=== PATIENT | male | born 1960 | race Caucasian/White ===

== ENCOUNTER 2017-06-26 15:24 | Inpatient (IN) | payer MEDICARE ==
[~2017-06-26] VITALS: Ht 185.4 cm; Wt 62.1 kg
[~2017-06-26 15:24] MED LIST: ALPR.5 PO; ALPR1; ALPR1 PO; Cleocin HCl300 MG PO; DIVA500EC PO; DIVA500ER PO; Depakene250 MG PO; LAMO100 PO; LITH300C PO; MOXIOPS OP; MULVITMIND PO; OLAN10 PO; ONDA4ODT MM; PHENY30ER; QUET100 PO; QUET300; QUET300 PO; RISP1 PO; TRAZ100 PO; TRAZ50 PO; VARE1 PO; Vibramycin100 MG PO
[2017-06-26 15:40] LABS: Calcium, Ionized (POC) 1.11 mmol/L (1.10-1.46); Chloride (POC) 102 mmol/L (98-108); Glucose (ISTAT POC) 109 mg/dL (70-99); Hemoglobin (POC) 12.6 g/dL (13.5-17.5); Potassium (POC) 3.6 mmol/L (3.5-5.5); Sodium (POC) 142 mmol/L (135-148); Total CO2 (POC) 28 mmol/L (21-32)
[2017-06-26 15:50] LABS: pH Blood Arterial 7.37 (7.35-7.45)
[2017-06-26 15:51] LABS: PCO2 Arterial 50.3 mmHg (35-45); PO2 Arterial 55.1 mmHg (80-100)
[2017-06-26] MEDS ORDERED: LITH300ER (16:00)
[2017-06-26] MEDS ORDERED: BUSP10 (16:00)
[2017-06-26 16:01] LABS: BASOPHILS ABSOLUTE AUTO 0.01 K/mm3 (0.00-0.23); BASOPHILS PERCENT AUTO 0 % (0-2); EOSINOPHILS PERCENT AUTO 0 % (0-6); Hematocrit 35.3 % (37.0-53.0); IMMATURE GRAN ABSOLUTE AUTO 0.02 K/mm3 (0.00-0.10); IMMATURE GRAN PERCENT AUTO 0 % (0-1); LYMPHOCYTES ABSOLUTE AUTO 1.11 K/mm3 (0.84-5.20); LYMPHOCYTES PERCENT AUTO 16 % (21-46); MONOCYTES ABSOLUTE AUTO 0.46 K/mm3 (0.16-1.47); MONOCYTES PERCENT AUTO 7 % (4-13); Mean Corpuscular HGB 35.9 pg (26.0-34.0); Mean Corpuscular Volume 106 fL (80-100); Mean Platelet Volume 11.2 fL (9.1-12.4); NEUTROPHILS PERCENT AUTO 77 % (41-73); Platelet Count 69 K/mm3 (150-400); RDW Coefficient Variation 13.2 % (11.7-14.2); RDW Standard Deviation 51.6 fL (35.1-46.3); Red Blood Cell Count 3.34 M/mm3 (4.30-5.90)
[2017-06-26 16:19] LABS: Alanine Aminotransfer (ALT/SGP 56 U/L (12-78); Albumin/Globulin Ratio 0.6 (0.8-1.8); Alk Phos 142 U/L (50-136); Anion Gap 7 mmol/L (6-16); Aspartate Aminotrans (AST/SGOT 76 U/L (12-37); Bilirubin, Total 1.4 mg/dL (0.1-1.0); Blood Urea Nitrogen 8 mg/dL (8-24); Bun/Creatinine Ratio 9.5 (12.0-20.0); CO2, Blood 28 mmol/L (21-32); Calcium, Blood 8.1 mg/dL (8.5-10.1); Chloride, Blood 105 mmol/L (98-108); Creatinine, Blood 0.84 mg/dL (0.60-1.20); Ethanol (Alcohol), Blood, Med <3 mg/dL; Globulin, Blood 4.9 g/dL (2.2-4.0); Glomerular Filtration Rate >60 (60-); Glucose, Blood 108 mg/dL (70-99); Potassium, Blood 3.6 mmol/L (3.5-5.5); Sodium, Blood 140 mmol/L (136-145); Total Protein, Blood 7.9 g/dL (6.4-8.2); Troponin I <0.015 ng/mL (0.000-0.040)
[2017-06-26 16:26] LABS: CPK Creatine Kinase 362 U/L (39-308)
[2017-06-26 16:28] LABS: Valproic Acid 69.9 ug/mL (50.0-100.0)
[2017-06-26 16:46] LABS: Creatine Kinase MB 5.1 ng/mL (0.0-3.6); Creatine Kinase MB Index 1.4 (0.0-4.0)
[2017-06-26 17:32] LABS: Source, Urine Catheter
[2017-06-26 17:41] LABS: Appearance, Urine Turbid (Clear); Blood, Urine Neg (Neg); Color, Urine Red (P-Yellow); Glucose Qualitative, Urine Neg (Neg); Ketones, Urine 2+ (Neg); Leukocyte Esterase, Urine 1+ (Neg); Nitrite, Urine Pos (Neg); Protein, Urine 2+ (Neg); Urobilinogen, Urine 3+ (Normal)
[2017-06-26 17:51] LABS: Amorphous Heavy (0-Heavy); Bacteria Not Seen /hpf; Red Blood Cells, Urine Not Seen /hpf (0-2); Squamous Epithelial Cells Not Seen /hpf (Few); White Blood Cells, Urine Not Seen /hpf (0-5)
[2017-06-26 17:55] LABS: U Amphetamine Screen DETECTED; U Barbituate Screen Not Detected; U Benzodiazapine Screen Not Detected; U Buprenorphine Screen Not Detected; U Cannabinoids Screen Not Detected; U Cocaine Screen Not Detected; U Methadone Screen Not Detected; U Methamphetamine Screen DETECTED; U Opiates Screen Not Detected; U Oxycodone Screen Not Detected; U Phencyclidine Screen Not Detected; U Propoxyphene Screen Not Detected
[2017-06-27 04:04] LABS: BASOPHILS ABSOLUTE AUTO 0.01 K/mm3 (0.00-0.23); BASOPHILS PERCENT AUTO 0 % (0-2); EOSINOPHILS PERCENT AUTO 0 % (0-6); Hematocrit 34.4 % (37.0-53.0); Hemoglobin 11.6 g/dL (13.5-17.5); IMMATURE GRAN ABSOLUTE AUTO 0.03 K/mm3 (0.00-0.10); IMMATURE GRAN PERCENT AUTO 0 % (0-1); LYMPHOCYTES ABSOLUTE AUTO 2.58 K/mm3 (0.84-5.20); LYMPHOCYTES PERCENT AUTO 32 % (21-46); MONOCYTES ABSOLUTE AUTO 0.97 K/mm3 (0.16-1.47); MONOCYTES PERCENT AUTO 12 % (4-13); Mean Corpuscular HGB 35.7 pg (26.0-34.0); Mean Corpuscular HGB Conc 33.7 g/dL (31.5-36.5); Mean Corpuscular Volume 106 fL (80-100); Mean Platelet Volume 11.4 fL (9.1-12.4); NEUTROPHILS PERCENT AUTO 55 % (41-73); Platelet Count 53 K/mm3 (150-400); RDW Coefficient Variation 13.2 % (11.7-14.2); RDW Standard Deviation 51.3 fL (35.1-46.3); Red Blood Cell Count 3.25 M/mm3 (4.30-5.90); White Blood Cell Count 7.99 K/mm3 (4.00-11.30)
[2017-06-27 04:19] LABS: Albumin, Blood 2.5 g/dL (3.4-5.0); Anion Gap 6 mmol/L (6-16); Blood Urea Nitrogen 10 mg/dL (8-24); Bun/Creatinine Ratio 13.5 (12.0-20.0); CO2, Blood 27 mmol/L (21-32); Calcium, Blood 7.7 mg/dL (8.5-10.1); Chloride, Blood 109 mmol/L (98-108); Creatinine, Blood 0.74 mg/dL (0.60-1.20); Glomerular Filtration Rate >60 (60-); Glucose, Blood 109 mg/dL (70-99); Phosphorus, Blood 2.4 mg/dL (2.5-4.9); Potassium, Blood 3.4 mmol/L (3.5-5.5); Sodium, Blood 142 mmol/L (136-145)
[2017-06-28 04:54] LABS: BASOPHILS ABSOLUTE AUTO 0.02 K/mm3 (0.00-0.23); BASOPHILS PERCENT AUTO 0 % (0-2); EOSINOPHILS ABSOLUTE AUTO 0.04 K/mm3 (0.00-0.68); EOSINOPHILS PERCENT AUTO 1 % (0-6); Hematocrit 33.5 % (37.0-53.0); Hemoglobin 11.4 g/dL (13.5-17.5); IMMATURE GRAN ABSOLUTE AUTO 0.02 K/mm3 (0.00-0.10); IMMATURE GRAN PERCENT AUTO 0 % (0-1); LYMPHOCYTES ABSOLUTE AUTO 2.45 K/mm3 (0.84-5.20); LYMPHOCYTES PERCENT AUTO 35 % (21-46); MONOCYTES ABSOLUTE AUTO 0.65 K/mm3 (0.16-1.47); MONOCYTES PERCENT AUTO 9 % (4-13); Mean Corpuscular HGB 35.4 pg (26.0-34.0); Mean Corpuscular Volume 104 fL (80-100); Mean Platelet Volume 11.9 fL (9.1-12.4); NEUTROPHILS ABSOLUTE AUTO 3.77 K/mm3 (1.96-9.15); NEUTROPHILS PERCENT AUTO 54 % (41-73); Platelet Count 54 K/mm3 (150-400); RDW Coefficient Variation 12.8 % (11.7-14.2); Red Blood Cell Count 3.22 M/mm3 (4.30-5.90); White Blood Cell Count 6.95 K/mm3 (4.00-11.30)
[2017-06-28 05:18] LABS: Albumin, Blood 2.2 g/dL (3.4-5.0); Anion Gap 7 mmol/L (6-16); Blood Urea Nitrogen 9 mg/dL (8-24); CO2, Blood 25 mmol/L (21-32); Calcium, Blood 7.9 mg/dL (8.5-10.1); Chloride, Blood 110 mmol/L (98-108); Creatinine, Blood 0.64 mg/dL (0.60-1.20); Glomerular Filtration Rate >60 (60-); Glucose, Blood 82 mg/dL (70-99); Phosphorus, Blood 2.1 mg/dL (2.5-4.9); Potassium, Blood 3.3 mmol/L (3.5-5.5); Sodium, Blood 142 mmol/L (136-145)
[2017-06-28 05:21] LABS: Percent Saturation 47.7 % (20.0-50.0)
[2017-06-29 03:50] LABS: BASOPHILS ABSOLUTE AUTO 0.02 K/mm3 (0.00-0.23); BASOPHILS PERCENT AUTO 0 % (0-2); EOSINOPHILS ABSOLUTE AUTO 0.06 K/mm3 (0.00-0.68); EOSINOPHILS PERCENT AUTO 1 % (0-6); Hematocrit 35.2 % (37.0-53.0); Hemoglobin 12.2 g/dL (13.5-17.5); IMMATURE GRAN ABSOLUTE AUTO 0.01 K/mm3 (0.00-0.10); IMMATURE GRAN PERCENT AUTO 0 % (0-1); LYMPHOCYTES ABSOLUTE AUTO 2.08 K/mm3 (0.84-5.20); LYMPHOCYTES PERCENT AUTO 44 % (21-46); MONOCYTES ABSOLUTE AUTO 0.58 K/mm3 (0.16-1.47); MONOCYTES PERCENT AUTO 12 % (4-13); Mean Corpuscular HGB 35.6 pg (26.0-34.0); Mean Corpuscular HGB Conc 34.7 g/dL (31.5-36.5); Mean Corpuscular Volume 103 fL (80-100); Mean Platelet Volume 12.1 fL (9.1-12.4); NEUTROPHILS ABSOLUTE AUTO 1.99 K/mm3 (1.96-9.15); NEUTROPHILS PERCENT AUTO 42 % (41-73); Platelet Count 61 K/mm3 (150-400); RDW Coefficient Variation 12.8 % (11.7-14.2); RDW Standard Deviation 48.3 fL (35.1-46.3); Red Blood Cell Count 3.43 M/mm3 (4.30-5.90); White Blood Cell Count 4.74 K/mm3 (4.00-11.30)
[2017-06-29 04:02] LABS: Albumin, Blood 2.1 g/dL (3.4-5.0); Anion Gap 6 mmol/L (6-16); Blood Urea Nitrogen 6 mg/dL (8-24); Bun/Creatinine Ratio 8.5 (12.0-20.0); CO2, Blood 29 mmol/L (21-32); Calcium, Blood 7.8 mg/dL (8.5-10.1); Chloride, Blood 108 mmol/L (98-108); Glomerular Filtration Rate >60 (60-); Glucose, Blood 84 mg/dL (70-99); Phosphorus, Blood 2.9 mg/dL (2.5-4.9); Potassium, Blood 3.7 mmol/L (3.5-5.5); Sodium, Blood 143 mmol/L (136-145)
[2017-06-30 05:47] LABS: BASOPHILS ABSOLUTE AUTO 0.01 K/mm3 (0.00-0.23); BASOPHILS PERCENT AUTO 0 % (0-2); EOSINOPHILS ABSOLUTE AUTO 0.04 K/mm3 (0.00-0.68); EOSINOPHILS PERCENT AUTO 1 % (0-6); Hematocrit 34.6 % (37.0-53.0); IMMATURE GRAN ABSOLUTE AUTO 0.02 K/mm3 (0.00-0.10); IMMATURE GRAN PERCENT AUTO 1 % (0-1); LYMPHOCYTES ABSOLUTE AUTO 2.36 K/mm3 (0.84-5.20); LYMPHOCYTES PERCENT AUTO 53 % (21-46); MONOCYTES ABSOLUTE AUTO 0.62 K/mm3 (0.16-1.47); MONOCYTES PERCENT AUTO 14 % (4-13); Mean Corpuscular HGB 35.2 pg (26.0-34.0); Mean Corpuscular HGB Conc 34.7 g/dL (31.5-36.5); Mean Corpuscular Volume 102 fL (80-100); Mean Platelet Volume 12.5 fL (9.1-12.4); NEUTROPHILS ABSOLUTE AUTO 1.38 K/mm3 (1.96-9.15); NEUTROPHILS PERCENT AUTO 31 % (41-73); Platelet Count 67 K/mm3 (150-400); RDW Coefficient Variation 12.9 % (11.7-14.2); Red Blood Cell Count 3.41 M/mm3 (4.30-5.90); White Blood Cell Count 4.43 K/mm3 (4.00-11.30)
[2017-06-30 06:02] LABS: Albumin, Blood 2.1 g/dL (3.4-5.0); Anion Gap 7 mmol/L (6-16); Blood Urea Nitrogen 7 mg/dL (8-24); CO2, Blood 28 mmol/L (21-32); Calcium, Blood 7.9 mg/dL (8.5-10.1); Chloride, Blood 107 mmol/L (98-108); Creatinine, Blood 0.64 mg/dL (0.60-1.20); Glomerular Filtration Rate >60 (60-); Glucose, Blood 97 mg/dL (70-99); Potassium, Blood 3.4 mmol/L (3.5-5.5); Sodium, Blood 142 mmol/L (136-145)
[2017-07-01] MEDS ORDERED: [UNRECOGNIZED DRUG - CODE] (19:23)
[2017-07-01] MEDS ORDERED: K-Dur20 MEQ PO (23:07)
== END 2017-06-30 15:19 | disposition home or self-care (01) | DRG 100 ==
LOC: ER 15:24 → ICUW 17:19 → ICUE 17:19 → MEDS 06-29 12:06 → ENPENDDIS 06-30 11:14 → MEDS 06-30 15:19
PROVIDERS: Emergency Medicine; Family Medicine
DX: G40.801 Other epilepsy, not intractable, with status epilepticus (principal); G92 Toxic encephalopathy; J18.9 Pneumonia, unspecified organism; R40.20 Unspecified coma; S06.9X9A Unspecified intracranial injury with loss of consciousness of unspecified duration, initial encounter; F10.230 Alcohol dependence with withdrawal, uncomplicated; M62.82 Rhabdomyolysis; N39.0 Urinary tract infection, site not specified; G81.94 Hemiplegia, unspecified affecting left nondominant side; F15.29 Other stimulant dependence with unspecified stimulant-induced disorder; B19.20 Unspecified viral hepatitis C without hepatic coma; G83.84 Todd's paralysis (postepileptic); D69.6 Thrombocytopenia, unspecified; E87.6 Hypokalemia; B18.2 Chronic viral hepatitis C; G83.24 Monoplegia of upper limb affecting left nondominant side; F31.9 Bipolar disorder, unspecified; E83.39 Other disorders of phosphorus metabolism; D64.9 Anemia, unspecified; J01.90 Acute sinusitis, unspecified; I67.9 Cerebrovascular disease, unspecified
CPT/HCPCS: 31720; 36415; 36600; 51702; 70450; 70551; 71045; 80047; 80053; 80069; 80164; 80178; 81001; 82550; 82553; 82607; 82728; 82746; 82803; 83540; 83550; 83605; 83735; 84146; 84484; 85014; 85025; 87086; 93005; 93010; 95819; 96374; 96375; 97161; 99285; C9113; G0480; G8978; G8979; J0456; J0696; J1953; J3411; J3475; J7030; J7042; J7050; J7060

== ENCOUNTER 2017-07-01 19:04 | Emergency (ER) | payer MEDICARE ==
[~2017-07-01] VITALS: Ht 185.4 cm; Wt 68.0 kg
[~2017-07-01 19:04] MED LIST changes: +BUSP10; +LITH300ER
[2017-07-01] MEDS ORDERED: [UNRECOGNIZED DRUG - CODE] (19:23)
[2017-07-01 20:18] LABS: Hematocrit 32.4 % (37.0-53.0); Hemoglobin 10.9 g/dL (13.5-17.5); Mean Corpuscular HGB 35.4 pg (26.0-34.0); Mean Corpuscular HGB Conc 33.6 g/dL (31.5-36.5); Mean Platelet Volume 11.7 fL (9.1-12.4); Platelet Count 87 K/mm3 (150-400); RDW Coefficient Variation 13.9 % (11.7-14.2); RDW Standard Deviation 53.9 fL (35.1-46.3); Red Blood Cell Count 3.08 M/mm3 (4.30-5.90); White Blood Cell Count 4.82 K/mm3 (4.00-11.30)
[2017-07-01 20:24] LABS: Mean Corpuscular Volume 105 fL (80-100)
[2017-07-01 20:34] LABS: U Amphetamine Screen Not Detected; U Barbituate Screen Not Detected; U Benzodiazapine Screen Not Detected; U Buprenorphine Screen Not Detected; U Cannabinoids Screen Not Detected; U Cocaine Screen Not Detected; U Methadone Screen Not Detected; U Methamphetamine Screen Not Detected; U Opiates Screen Not Detected; U Oxycodone Screen Not Detected; U Phencyclidine Screen Not Detected; U Propoxyphene Screen Not Detected
[2017-07-01 20:34] LABS: Alanine Aminotransfer (ALT/SGP 46 U/L (12-78); Albumin, Blood 2.4 g/dL (3.4-5.0); Albumin/Globulin Ratio 0.6 (0.8-1.8); Alk Phos 80 U/L (50-136); Anion Gap 6 mmol/L (6-16); Aspartate Aminotrans (AST/SGOT 79 U/L (12-37); Bilirubin, Total 0.5 mg/dL (0.1-1.0); Blood Urea Nitrogen 3 mg/dL (8-24); Bun/Creatinine Ratio 5.4 (12.0-20.0); CO2, Blood 28 mmol/L (21-32); Calcium, Blood 7.3 mg/dL (8.5-10.1); Chloride, Blood 111 mmol/L (98-108); Creatinine, Blood 0.55 mg/dL (0.60-1.20); Ethanol (Alcohol), Blood, Med 175 mg/dL; Globulin, Blood 3.9 g/dL (2.2-4.0); Glomerular Filtration Rate >60 (60-); Glucose, Blood 78 mg/dL (70-99); Potassium, Blood 2.9 mmol/L (3.5-5.5); Sodium, Blood 145 mmol/L (136-145); Total Protein, Blood 6.3 g/dL (6.4-8.2); Valproic Acid 40.8 ug/mL (50.0-100.0)
[2017-07-01 20:38] LABS: BAND PERCENT MAN 1 % (0-8); BASOPHILS PERCENT MAN 0 % (0-2); EOSINOPHILS PERCENT MAN 0 % (0-6); LYMPHOCYTES ABSOLUTE MAN 3.13 K/mm3 (0.84-5.20); LYMPHOCYTES PERCENT MAN 65 % (21-46); MONOCYTES ABSOLUTE MAN 0.48 K/mm3 (0.16-1.47); MONOCYTES PERCENT MAN 10 % (4-13); SEG NEUTROPHILS PERCENT MAN 24 % (41-73); TOTAL CELLS COUNTED 100
[2017-07-01 21:23] LABS: Lithium <0.20 mmol/L (0.60-1.20)
[2017-07-01] MEDS ORDERED: K-Dur20 MEQ PO (23:07)
== END 2017-07-01 23:20 | disposition home or self-care (01) ==
LOC: ER 19:04
PROVIDERS: Emergency Medicine
DX: F10.129 Alcohol abuse with intoxication, unspecified (principal); E87.6 Hypokalemia; Z88.0 Allergy status to penicillin; Z79.899 Other long term (current) drug therapy; F41.9 Anxiety disorder, unspecified; G40.909 Epilepsy, unspecified, not intractable, without status epilepticus; F31.9 Bipolar disorder, unspecified
CPT/HCPCS: 80053; 80164; 80178; 85025; G0480

== ENCOUNTER → 2017-09-05 | Outpatient (CLI) | payer MEDICARE ==
[~2017-09-05] MED LIST changes: +K-Dur20 MEQ PO; +[UNRECOGNIZED DRUG - CODE]
[2017-09-05 18:31] LABS: Valproic Acid 47.4 ug/mL (50.0-100.0)
== END | disposition home or self-care (01) ==
LOC: LAB SHORT 09:30 → LAB 09:30
PROVIDERS: Nurse Practitioner Family
DX: F31.10 Bipolar disorder, current episode manic without psychotic features, unspecified (principal); R56.9 Unspecified convulsions
CPT/HCPCS: 80164

== ENCOUNTER 2017-11-18 08:07 | Emergency (ER) | payer MEDICARE ==
[~2017-11-18] VITALS: Ht 185.4 cm; Wt 59.0 kg
[2017-11-18] MEDS ORDERED: VARE1 PO (08:22)
[2017-11-18] MEDS ORDERED: BUSP10 PO (08:22)
[2017-11-18 08:53] LABS: BASOPHILS ABSOLUTE AUTO 0.03 K/mm3 (0.00-0.23); BASOPHILS PERCENT AUTO 0 % (0-2); EOSINOPHILS ABSOLUTE AUTO 0.03 K/mm3 (0.00-0.68); EOSINOPHILS PERCENT AUTO 0 % (0-6); Hematocrit 33.6 % (37.0-53.0); Hemoglobin 11.2 g/dL (13.5-17.5); IMMATURE GRAN ABSOLUTE AUTO 0.01 K/mm3 (0.00-0.10); IMMATURE GRAN PERCENT AUTO 0 % (0-1); LYMPHOCYTES ABSOLUTE AUTO 2.37 K/mm3 (0.84-5.20); LYMPHOCYTES PERCENT AUTO 30 % (21-46); MONOCYTES PERCENT AUTO 13 % (4-13); Mean Corpuscular HGB 35.3 pg (26.0-34.0); Mean Corpuscular HGB Conc 33.3 g/dL (31.5-36.5); Mean Corpuscular Volume 106 fL (80-100); Mean Platelet Volume 9.3 fL (9.1-12.4); NEUTROPHILS ABSOLUTE AUTO 4.58 K/mm3 (1.96-9.15); NEUTROPHILS PERCENT AUTO 57 % (41-73); Platelet Count 112 K/mm3 (150-400); RDW Coefficient Variation 14.7 % (11.7-14.2); RDW Standard Deviation 58.4 fL (35.1-46.3); Red Blood Cell Count 3.17 M/mm3 (4.30-5.90); White Blood Cell Count 8.02 K/mm3 (4.00-11.30)
[2017-11-18 09:08] LABS: Alanine Aminotransfer (ALT/SGP 36 U/L (12-78); Albumin, Blood 2.7 g/dL (3.4-5.0); Albumin/Globulin Ratio 0.5 (0.8-1.8); Alk Phos 92 U/L (50-136); Anion Gap 6 mmol/L (6-16); Aspartate Aminotrans (AST/SGOT 75 U/L (12-37); Blood Urea Nitrogen 6 mg/dL (8-24); Bun/Creatinine Ratio 9.7 (12.0-20.0); CO2, Blood 27 mmol/L (21-32); Calcium, Blood 7.6 mg/dL (8.5-10.1); Chloride, Blood 108 mmol/L (98-108); Creatinine, Blood 0.62 mg/dL (0.60-1.20); Glomerular Filtration Rate >60 (60-); Glucose, Blood 85 mg/dL (70-99); Potassium, Blood 3.7 mmol/L (3.5-5.5); Sodium, Blood 141 mmol/L (136-145); Total Protein, Blood 7.7 g/dL (6.4-8.2); Valproic Acid 62.1 ug/mL (50.0-100.0)
== END 2017-11-18 10:18 | disposition home or self-care (01) ==
LOC: ER 08:07
PROVIDERS: Emergency Medicine
DX: G40.909 Epilepsy, unspecified, not intractable, without status epilepticus (principal); F10.20 Alcohol dependence, uncomplicated; F31.9 Bipolar disorder, unspecified; F17.210 Nicotine dependence, cigarettes, uncomplicated; Z88.0 Allergy status to penicillin; Z79.899 Other long term (current) drug therapy
CPT/HCPCS: 36415; 71046; 80053; 80164; 85025; 96360; 99284-25; J7030

== ENCOUNTER 2018-01-28 06:51 | Inpatient (IN) | payer MEDICARE ==
[~2018-01-28] VITALS: Ht 185.4 cm; Wt 64.5 kg
[~2018-01-28 06:51] MED LIST changes: +BUSP10 PO
[2018-01-28 08:33] LABS: BASOPHILS ABSOLUTE AUTO 0.03 K/mm3 (0.00-0.23); BASOPHILS PERCENT AUTO 1 % (0-2); EOSINOPHILS ABSOLUTE AUTO 0.03 K/mm3 (0.00-0.68); EOSINOPHILS PERCENT AUTO 1 % (0-6); Hematocrit 32.3 % (37.0-53.0); Hemoglobin 10.5 g/dL (13.5-17.5); IMMATURE GRAN ABSOLUTE AUTO 0.02 K/mm3 (0.00-0.10); IMMATURE GRAN PERCENT AUTO 0 % (0-1); LYMPHOCYTES ABSOLUTE AUTO 3.08 K/mm3 (0.84-5.20); LYMPHOCYTES PERCENT AUTO 49 % (21-46); MONOCYTES PERCENT AUTO 8 % (4-13); Mean Corpuscular HGB 35.8 pg (26.0-34.0); Mean Corpuscular HGB Conc 32.5 g/dL (31.5-36.5); Mean Corpuscular Volume 110 fL (80-100); Mean Platelet Volume 10.5 fL (9.1-12.4); NEUTROPHILS ABSOLUTE AUTO 2.64 K/mm3 (1.96-9.15); NEUTROPHILS PERCENT AUTO 42 % (41-73); RDW Coefficient Variation 15.6 % (11.7-14.2); RDW Standard Deviation 63.8 fL (35.1-46.3); Red Blood Cell Count 2.93 M/mm3 (4.30-5.90)
[2018-01-28 08:37] LABS: Platelet Count 41 K/mm3 (150-400)
[2018-01-28 08:49] LABS: Alanine Aminotransfer (ALT/SGP 63 U/L (12-78); Albumin, Blood 2.5 g/dL (3.4-5.0); Albumin/Globulin Ratio 0.5 (0.8-1.8); Alk Phos 102 U/L (50-136); Anion Gap 4 mmol/L (6-16); Aspartate Aminotrans (AST/SGOT 152 U/L (12-37); Bilirubin, Total 1.1 mg/dL (0.1-1.0); Blood Urea Nitrogen 8 mg/dL (8-24); Bun/Creatinine Ratio 12.7 (12.0-20.0); CO2, Blood 30 mmol/L (21-32); Calcium, Blood 7.5 mg/dL (8.5-10.1); Chloride, Blood 111 mmol/L (98-108); Creatinine, Blood 0.63 mg/dL (0.60-1.20); Globulin, Blood 5.1 g/dL (2.2-4.0); Glomerular Filtration Rate >60 (60-); Glucose, Blood 87 mg/dL (70-99); Sodium, Blood 145 mmol/L (136-145); Total Protein, Blood 7.6 g/dL (6.4-8.2)
[2018-01-28] MEDS ORDERED: DIVA500ER PO (12:57)
[2018-01-28 14:15] LABS: Ethanol (Alcohol), Blood, Med 161 mg/dL
[2018-01-28 14:23] LABS: Alpha Feto Protein, Tumor Mkr 6.7 ng/mL (0.0-8.0); Lithium <0.20 mmol/L (0.60-1.20)
[2018-01-28 18:05] LABS: Hematocrit 26.8 % (37.0-53.0); Hemoglobin 8.5 g/dL (13.5-17.5)
[2018-01-28 22:09] LABS: Hematocrit 22.7 % (37.0-53.0); Hemoglobin 7.3 g/dL (13.5-17.5)
[2018-01-29 04:02] LABS: BASOPHILS ABSOLUTE AUTO 0.01 K/mm3 (0.00-0.23); BASOPHILS PERCENT AUTO 0 % (0-2); EOSINOPHILS ABSOLUTE AUTO 0.04 K/mm3 (0.00-0.68); EOSINOPHILS PERCENT AUTO 1 % (0-6); Hematocrit 22.7 % (37.0-53.0); Hemoglobin 7.3 g/dL (13.5-17.5); IMMATURE GRAN ABSOLUTE AUTO 0.03 K/mm3 (0.00-0.10); IMMATURE GRAN PERCENT AUTO 1 % (0-1); LYMPHOCYTES ABSOLUTE AUTO 3.24 K/mm3 (0.84-5.20); LYMPHOCYTES PERCENT AUTO 49 % (21-46); MONOCYTES ABSOLUTE AUTO 0.83 K/mm3 (0.16-1.47); MONOCYTES PERCENT AUTO 13 % (4-13); Mean Corpuscular HGB 35.8 pg (26.0-34.0); Mean Corpuscular HGB Conc 32.2 g/dL (31.5-36.5); Mean Corpuscular Volume 111 fL (80-100); Mean Platelet Volume 11.1 fL (9.1-12.4); NEUTROPHILS ABSOLUTE AUTO 2.42 K/mm3 (1.96-9.15); NEUTROPHILS PERCENT AUTO 37 % (41-73); RDW Coefficient Variation 15.3 % (11.7-14.2); RDW Standard Deviation 63.1 fL (35.1-46.3); Red Blood Cell Count 2.04 M/mm3 (4.30-5.90); White Blood Cell Count 6.57 K/mm3 (4.00-11.30)
[2018-01-29 04:06] LABS: Platelet Count 34 K/mm3 (150-400)
[2018-01-29 04:26] LABS: Percent Saturation 77.7 % (20.0-50.0)
[2018-01-29 04:29] LABS: Alanine Aminotransfer (ALT/SGP 47 U/L (12-78); Albumin/Globulin Ratio 0.5 (0.8-1.8); Alk Phos 86 U/L (50-136); Anion Gap 5 mmol/L (6-16); Aspartate Aminotrans (AST/SGOT 111 U/L (12-37); Bilirubin, Total 1.1 mg/dL (0.1-1.0); Blood Urea Nitrogen 13 mg/dL (8-24); Bun/Creatinine Ratio 14.5 (12.0-20.0); CO2, Blood 29 mmol/L (21-32); Calcium, Blood 7.3 mg/dL (8.5-10.1); Chloride, Blood 107 mmol/L (98-108); Globulin, Blood 4.4 g/dL (2.2-4.0); Glomerular Filtration Rate >60 (60-); Glucose, Blood 87 mg/dL (70-99); Magnesium, Blood 1.9 mg/dL (1.6-2.4); Phosphorus, Blood 3.6 mg/dL (2.5-4.9); Potassium, Blood 4.4 mmol/L (3.5-5.5); Sodium, Blood 141 mmol/L (136-145); Total Protein, Blood 6.4 g/dL (6.4-8.2)
[2018-01-29 10:26] LABS: International Normalized Ratio 1.47; Prothrombin Time Results 14.8 Sec (9.7-11.5)
[2018-01-29 13:10] LABS: Automated BF RBC Count 2.042 M/mm3 (0-0); Automated BF WBC Count 2.819 K/mm3 (0-999); Body Fluid WBC Count 2819 /mm3 (0-999); RBC Count, Body Fluid 2042000 /mm3 (0-0)
[2018-01-29 13:13] LABS: Glucose, Body Fluid 51 mg/dL; Lactate Dehydrogenase, Body Fl 261 U/L; Protein, Body Fluid 5.7 g/dL
[2018-01-29 14:05] LABS: Appearance, Body Fluid Bloody (Clear); Color, Body Fluid Red (None-Yellow); Total Cell Count, Body Fluid 100
[2018-01-29 14:12] LABS: pH, Body Fluid 7.7
[2018-01-29 19:23] LABS: Hematocrit 26.5 % (37.0-53.0); Hemoglobin 8.6 g/dL (13.5-17.5)
[2018-01-30 06:31] LABS: BASOPHILS ABSOLUTE AUTO 0.02 K/mm3 (0.00-0.23); BASOPHILS PERCENT AUTO 0 % (0-2); EOSINOPHILS ABSOLUTE AUTO 0.08 K/mm3 (0.00-0.68); EOSINOPHILS PERCENT AUTO 1 % (0-6); Hematocrit 25.2 % (37.0-53.0); Hemoglobin 8.3 g/dL (13.5-17.5); IMMATURE GRAN ABSOLUTE AUTO 0.03 K/mm3 (0.00-0.10); IMMATURE GRAN PERCENT AUTO 1 % (0-1); LYMPHOCYTES ABSOLUTE AUTO 2.59 K/mm3 (0.84-5.20); LYMPHOCYTES PERCENT AUTO 47 % (21-46); MONOCYTES ABSOLUTE AUTO 0.59 K/mm3 (0.16-1.47); MONOCYTES PERCENT AUTO 11 % (4-13); Mean Corpuscular HGB 34.7 pg (26.0-34.0); Mean Corpuscular HGB Conc 32.9 g/dL (31.5-36.5); Mean Corpuscular Volume 105 fL (80-100); Mean Platelet Volume 10.7 fL (9.1-12.4); NEUTROPHILS ABSOLUTE AUTO 2.24 K/mm3 (1.96-9.15); NEUTROPHILS PERCENT AUTO 40 % (41-73); RDW Coefficient Variation 18.3 % (11.7-14.2); RDW Standard Deviation 70.5 fL (35.1-46.3); Red Blood Cell Count 2.39 M/mm3 (4.30-5.90); White Blood Cell Count 5.55 K/mm3 (4.00-11.30)
[2018-01-30 06:32] LABS: Platelet Count 37 K/mm3 (150-400)
[2018-01-31 04:33] LABS: BASOPHILS ABSOLUTE AUTO 0.01 K/mm3 (0.00-0.23); BASOPHILS PERCENT AUTO 0 % (0-2); EOSINOPHILS ABSOLUTE AUTO 0.06 K/mm3 (0.00-0.68); EOSINOPHILS PERCENT AUTO 1 % (0-6); Hematocrit 27.1 % (37.0-53.0); Hemoglobin 8.9 g/dL (13.5-17.5); IMMATURE GRAN ABSOLUTE AUTO 0.03 K/mm3 (0.00-0.10); IMMATURE GRAN PERCENT AUTO 1 % (0-1); LYMPHOCYTES ABSOLUTE AUTO 2.68 K/mm3 (0.84-5.20); LYMPHOCYTES PERCENT AUTO 45 % (21-46); MONOCYTES ABSOLUTE AUTO 0.69 K/mm3 (0.16-1.47); MONOCYTES PERCENT AUTO 12 % (4-13); Mean Corpuscular HGB 34.5 pg (26.0-34.0); Mean Corpuscular HGB Conc 32.8 g/dL (31.5-36.5); Mean Corpuscular Volume 105 fL (80-100); Mean Platelet Volume 10.6 fL (9.1-12.4); NEUTROPHILS ABSOLUTE AUTO 2.46 K/mm3 (1.96-9.15); NEUTROPHILS PERCENT AUTO 42 % (41-73); Platelet Count 126 K/mm3 (150-400); RDW Coefficient Variation 17.9 % (11.7-14.2); RDW Standard Deviation 68.6 fL (35.1-46.3); Red Blood Cell Count 2.58 M/mm3 (4.30-5.90); White Blood Cell Count 5.93 K/mm3 (4.00-11.30)
[2018-01-31 04:58] LABS: Anion Gap 5 mmol/L (6-16); Blood Urea Nitrogen 6 mg/dL (8-24); CO2, Blood 26 mmol/L (21-32); Chloride, Blood 107 mmol/L (98-108); Creatinine, Blood 0.86 mg/dL (0.60-1.20); Glomerular Filtration Rate >60 (60-); Glucose, Blood 91 mg/dL (70-99); Potassium, Blood 4.4 mmol/L (3.5-5.5); Sodium, Blood 138 mmol/L (136-145)
== END 2018-01-31 10:40 | disposition home or self-care (01) | DRG 199 ==
LOC: ER 06:51 → PCU 06:52 → MEDS 01-30 17:09 → ENPENDDIS 01-31 09:36 → MEDS 01-31 10:40
PROVIDERS: Emergency Medicine; Hospitalist; Internal Medicine
PROC: 0W9B3ZZ Drainage of Left Pleural Cavity, Percutaneous Approach (ICD-10-PCS; principal; 2018-01-28)
DX: S27.1XXA Traumatic hemothorax, initial encounter (principal); J96.01 Acute respiratory failure with hypoxia; J90 Pleural effusion, not elsewhere classified; E44.0 Moderate protein-calorie malnutrition; J98.11 Atelectasis; Z68.1 Body mass index [BMI] 19.9 or less, adult; I95.9 Hypotension, unspecified; G40.909 Epilepsy, unspecified, not intractable, without status epilepticus; F31.9 Bipolar disorder, unspecified; F17.210 Nicotine dependence, cigarettes, uncomplicated; D69.6 Thrombocytopenia, unspecified; B19.20 Unspecified viral hepatitis C without hepatic coma; D50.0 Iron deficiency anemia secondary to blood loss (chronic); F10.129 Alcohol abuse with intoxication, unspecified; W19.XXXA Unspecified fall, initial encounter
CPT/HCPCS: 32555; 36415; 36430; 71045; 71046; 71260; 76705; 80048; 80053; 80164; 80178; 82105; 82607; 82728; 82746; 82945; 83540; 83550; 83605; 83615; 83735; 83986; 84100; 84157; 85014; 85018; 85025; 85610; 85730; 86850; 86900; 86901; 86923; 87040; 87070; 87186; 87205; 89051; 90686; 92610; 94640; 94760; 96361; 96365; 97162; 97166; 97530; 97535; 99285-25; G0008; G0378; G0480; G8978; G8979; G8987; G8988; G8996; G8997; G8998; J0696; J1885; J1956; J3010; J3411; J3475; J7042; J7050; J7120; P9016; P9035; Q9967

== ENCOUNTER 2018-03-22 17:08 | Inpatient (IN) | payer MEDICARE ==
[~2018-03-22] VITALS: Ht 182.9 cm; Wt 58.0 kg
[2018-03-22 18:03] LABS: Source, Urine Clean Catch
[2018-03-22 18:05] LABS: BASOPHILS ABSOLUTE AUTO 0.01 K/mm3 (0.00-0.23); BASOPHILS PERCENT AUTO 0 % (0-2); EOSINOPHILS PERCENT AUTO 0 % (0-6); Hematocrit 28.3 % (37.0-53.0); Hemoglobin 9.5 g/dL (13.5-17.5); IMMATURE GRAN ABSOLUTE AUTO 0.02 K/mm3 (0.00-0.10); IMMATURE GRAN PERCENT AUTO 0 % (0-1); LYMPHOCYTES PERCENT AUTO 27 % (21-46); MONOCYTES PERCENT AUTO 23 % (4-13); Mean Corpuscular HGB 36.5 pg (26.0-34.0); Mean Corpuscular HGB Conc 33.6 g/dL (31.5-36.5); Mean Corpuscular Volume 109 fL (80-100); Mean Platelet Volume 10.7 fL (9.1-12.4); NEUTROPHILS ABSOLUTE AUTO 2.65 K/mm3 (1.96-9.15); NEUTROPHILS PERCENT AUTO 50 % (41-73); Platelet Count 52 K/mm3 (150-400); RDW Coefficient Variation 15.9 % (11.7-14.2); RDW Standard Deviation 63.4 fL (35.1-46.3); White Blood Cell Count 5.28 K/mm3 (4.00-11.30)
[2018-03-22 18:16] LABS: Alanine Aminotransfer (ALT/SGP 41 U/L (12-78); Albumin, Blood 2.6 g/dL (3.4-5.0); Albumin/Globulin Ratio 0.5 (0.8-1.8); Alk Phos 89 U/L (50-136); Anion Gap 10 mmol/L (6-16); Aspartate Aminotrans (AST/SGOT 86 U/L (12-37); Bilirubin, Total 3.1 mg/dL (0.1-1.0); Blood Urea Nitrogen 19 mg/dL (8-24); Bun/Creatinine Ratio 28.1 (12.0-20.0); CO2, Blood 22 mmol/L (21-32); Calcium, Blood 7.3 mg/dL (8.5-10.1); Chloride, Blood 101 mmol/L (98-108); Creatinine, Blood 0.68 mg/dL (0.60-1.20); Glomerular Filtration Rate >60 (60-); Glucose, Blood 174 mg/dL (70-99); Potassium, Blood 2.6 mmol/L (3.5-5.5); Sodium, Blood 133 mmol/L (136-145); Total Protein, Blood 7.6 g/dL (6.4-8.2)
[2018-03-22 18:34] LABS: Appearance, Urine Hazy (Clear); Blood, Urine 1+ (Neg); Color, Urine Amber (P-Yellow); Glucose Qualitative, Urine Neg (Neg); Ketones, Urine 2+ (Neg); Leukocyte Esterase, Urine 2+ (Neg); Nitrite, Urine Pos (Neg); Protein, Urine 2+ (Neg); Specific Gravity, Urine 1.015 (1.003-1.022); Urobilinogen, Urine 4+ (Normal)
[2018-03-22 18:58] LABS: Bilirubin, Urine 3+ (Neg)
[2018-03-22 19:01] LABS: Red Blood Cells, Urine Not Seen /hpf (0-2)
[2018-03-22 19:02] LABS: Bacteria Not Seen /hpf; Mucus Mod (0-Heavy); Squamous Epithelial Cells Few /hpf (Few)
[2018-03-22 19:17] LABS: Valproic Acid 34.2 ug/mL (50.0-100.0)
[2018-03-22 19:20] LABS: Ethanol (Alcohol), Blood, Med <3 mg/dL
[2018-03-22 19:24] LABS: Lithium <0.20 mmol/L (0.60-1.20)
[2018-03-22 19:28] LABS: U Benzodiazapine Screen DETECTED; U Cannabinoids Screen DETECTED
[2018-03-22 19:29] LABS: U Amphetamine Screen Not Detected; U Barbituate Screen Not Detected; U Buprenorphine Screen Not Detected; U Cocaine Screen Not Detected; U Methadone Screen Not Detected; U Methamphetamine Screen Not Detected; U Opiates Screen Not Detected; U Oxycodone Screen DETECTED; U Phencyclidine Screen Not Detected; U Propoxyphene Screen Not Detected
[2018-03-23 21:23] LABS: BASOPHILS ABSOLUTE AUTO 0.01 K/mm3 (0.00-0.23); BASOPHILS PERCENT AUTO 0 % (0-2); EOSINOPHILS ABSOLUTE AUTO 0.02 K/mm3 (0.00-0.68); EOSINOPHILS PERCENT AUTO 0 % (0-6); Hematocrit 31.5 % (37.0-53.0); Hemoglobin 10.6 g/dL (13.5-17.5); IMMATURE GRAN ABSOLUTE AUTO 0.01 K/mm3 (0.00-0.10); IMMATURE GRAN PERCENT AUTO 0 % (0-1); LYMPHOCYTES ABSOLUTE AUTO 2.36 K/mm3 (0.84-5.20); LYMPHOCYTES PERCENT AUTO 49 % (21-46); MONOCYTES ABSOLUTE AUTO 0.86 K/mm3 (0.16-1.47); MONOCYTES PERCENT AUTO 18 % (4-13); Mean Corpuscular HGB 36.2 pg (26.0-34.0); Mean Corpuscular HGB Conc 33.7 g/dL (31.5-36.5); Mean Corpuscular Volume 108 fL (80-100); Mean Platelet Volume 10.9 fL (9.1-12.4); NEUTROPHILS ABSOLUTE AUTO 1.61 K/mm3 (1.96-9.15); NEUTROPHILS PERCENT AUTO 33 % (41-73); Platelet Count 62 K/mm3 (150-400); RDW Coefficient Variation 16.5 % (11.7-14.2); RDW Standard Deviation 64.5 fL (35.1-46.3); Red Blood Cell Count 2.93 M/mm3 (4.30-5.90); White Blood Cell Count 4.87 K/mm3 (4.00-11.30)
[2018-03-23 21:53] LABS: Alanine Aminotransfer (ALT/SGP 34 U/L (12-78); Albumin, Blood 2.2 g/dL (3.4-5.0); Albumin/Globulin Ratio 0.5 (0.8-1.8); Alk Phos 81 U/L (50-136); Anion Gap 6 mmol/L (6-16); Aspartate Aminotrans (AST/SGOT 68 U/L (12-37); Bilirubin, Total 2.2 mg/dL (0.1-1.0); Blood Urea Nitrogen 6 mg/dL (8-24); Bun/Creatinine Ratio 9.4 (12.0-20.0); CO2, Blood 25 mmol/L (21-32); Calcium, Blood 7.6 mg/dL (8.5-10.1); Chloride, Blood 108 mmol/L (98-108); Creatinine, Blood 0.64 mg/dL (0.60-1.20); Globulin, Blood 4.5 g/dL (2.2-4.0); Glomerular Filtration Rate >60 (60-); Glucose, Blood 99 mg/dL (70-99); Magnesium, Blood 1.8 mg/dL (1.6-2.4); Potassium, Blood 3.3 mmol/L (3.5-5.5); Sodium, Blood 139 mmol/L (136-145); Total Protein, Blood 6.7 g/dL (6.4-8.2)
[2018-03-24 02:39] LABS: Source, Urine Clean Catch
[2018-03-24 02:44] LABS: Blood, Urine Neg (Neg); Glucose Qualitative, Urine Neg (Neg); Ketones, Urine Neg (Neg); Leukocyte Esterase, Urine 1+ (Neg); Nitrite, Urine Neg (Neg); Protein, Urine Neg (Neg); Specific Gravity, Urine 1.015 (1.003-1.022); Urobilinogen, Urine 4+ (Normal)
[2018-03-24 02:53] LABS: Appearance, Urine Clear (Clear); Color, Urine Orange (P-Yellow)
[2018-03-24 02:54] LABS: Bilirubin, Urine 2+ (Neg)
[2018-03-24 02:55] LABS: Bacteria Rare /hpf; Red Blood Cells, Urine Not Seen /hpf (0-2); Squamous Epithelial Cells Rare /hpf (Few); White Blood Cells, Urine 0-2 /hpf (0-5)
--- NOTE | 2018-03-24 06:23 | NUR ---
Rn summary: Patient has been withdrawn and sleeping all of shift. Pt up to void x2 in urinal. UA sent, with pending culture. Patient is more awake, hungry this am, eating a sandwich. BP was low when taken by PENCIL MAKER. More appropriate small cuff used, BP 95/57 p-78. Fluid bolus of 500cc NS W/O given. Pt has had no signs of ETOH withdrawl this shift, he is thought to be 4 days from last drink. SCD's applied. Pt has lg bruise outer upper arm from fall at home. Bed alarm is on. Will continue to monitor closely.
[2018-03-24 06:36] LABS: Hematocrit 30.2 % (37.0-53.0); Hemoglobin 9.9 g/dL (13.5-17.5); Mean Corpuscular HGB 36.3 pg (26.0-34.0); Mean Corpuscular HGB Conc 32.8 g/dL (31.5-36.5); Platelet Count 62 K/mm3 (150-400); RDW Coefficient Variation 16.9 % (11.7-14.2); RDW Standard Deviation 67.6 fL (35.1-46.3); Red Blood Cell Count 2.73 M/mm3 (4.30-5.90); White Blood Cell Count 5.28 K/mm3 (4.00-11.30)
[2018-03-24 06:48] LABS: Mean Corpuscular Volume 111 fL (80-100)
[2018-03-24 07:16] LABS: Alanine Aminotransfer (ALT/SGP 34 U/L (12-78); Albumin, Blood 2.1 g/dL (3.4-5.0); Albumin/Globulin Ratio 0.5 (0.8-1.8); Alk Phos 70 U/L (50-136); Anion Gap 5 mmol/L (6-16); Aspartate Aminotrans (AST/SGOT 66 U/L (12-37); Bilirubin, Total 2.1 mg/dL (0.1-1.0); Blood Urea Nitrogen 4 mg/dL (8-24); Bun/Creatinine Ratio 5.6 (12.0-20.0); CO2, Blood 27 mmol/L (21-32); Calcium, Blood 7.3 mg/dL (8.5-10.1); Chloride, Blood 111 mmol/L (98-108); Creatinine, Blood 0.72 mg/dL (0.60-1.20); Globulin, Blood 4.4 g/dL (2.2-4.0); Glomerular Filtration Rate >60 (60-); Glucose, Blood 83 mg/dL (70-99); Magnesium, Blood 1.8 mg/dL (1.6-2.4); Potassium, Blood 3.8 mmol/L (3.5-5.5); Sodium, Blood 143 mmol/L (136-145); Total Protein, Blood 6.5 g/dL (6.4-8.2)
[2018-03-24 07:18] LABS: Lithium 0.38 mmol/L (0.60-1.20)
--- NOTE | 2018-03-24 16:54 | NUR ---
SHIFT SUMMARY PATIENT PROGRESSIVELY BECOMING MORE IMPULSIVE. VERY FORGETFUL THAT HE IS TO REQUEST FOR ASSISTANCE TO GET UP. HE IS VERY UNSTEADY ON HIS FEET. BED ALARM IN PLACE. UNAWARE THAT HE IS STAYING AT THE HOSPITAL MULTIPLE DAYS, EASILY REORIENTS AT THIS TIME.
--- NOTE | 2018-03-24 21:37 | NUR ---
patient gave permission to assist in care for 03/26/2018 on 03/24/2018.
--- NOTE | 2018-03-25 05:41 | NUR ---
FEBRILE OVER NOC, SLEPT MOST OF THE NOC, A/O X 2, NO HALLUCINATIONS BUT SOME FRUSTRATION W/HIS BROTHER FOR GETTING HIM INTO THIS SITUATION, SOFT SPOKEN UNLESS AGITATED, 20G L AC, NS w/20 MEQ KCL @ 100 TO BE D/C'D AFTER CURRENT BAG. PMHX; CHRONIC ETOH ABUSE, BI-POLAR, ANXIETY, MULTIPLE BRAIN SURGERIES FOR FREQ FALLS W/HEAD INJURIES.
--- NOTE | 2018-03-25 11:30 | NUR ---
Pt gave consent for care to practical nursing faculty Nayana Martino for 02/22/18.
[2018-03-25 12:59] LABS: Percent Saturation 22.2 % (20.0-50.0)
--- NOTE | 2018-03-25 16:28 | NUR ---
SHIFT SUMMARY PATIENT HAS MOVED ABOUT HIS ROOM. HE HAS ON HIS STREET CLOTHES, OVER HIS HOSPITAL GOWN. CONTINUALLY ASKING WHEN HE CAN DISCHARGE. FEELS HE IS STABLE. STATES HIS BROTHER TOOK HIS MEDICATION AWAY. EASILY REASSURED THAT HIS BROTHER AND FRIEND RAÚL WERE LOOKING OUT FOR HIS BEST INTEREST. NICOTINE PATCH PLACED DUE TO NOT BEING ABLE TO SMOKE. PATIENT IN GOOD SPIRITS OVERALL. CIWA 0 AT THIS TIME.
--- NOTE | 2018-03-26 04:53 | NUR ---
VSS, AFEBRILE, A/O X 1 - 2 AT TIMES, RESTLESS OVER NOC, DID NOT SLEEP, FLIGHT OF IDEAS, FIXATED ON RANDOM IDEAS/THOUGHTS AND PACING AROUND IN AND OUT OF HIS ROOM SEEKING ATTENTION ABOUT THEM, BECOMING INCREASINGLY DIFFICULT TO REDIRECT, NO IV - MD OK, UNSTEADY GAIT, SIGNIFICANT RISK FOR FALLS BUT WILL NOT TOLERATE THE BED ALARM DUE TO HIS FREQUENT BED EXITS TO PACE AROUND THE ROOM. NO S/S OF WITHDRAWL SUCH HALLUCINATIONS/TREMORS BUT RATHER MORE LIKE MANIC TYPE BEHAVIORS. MAY NEED MEDICATION MANAGEMENT.
--- NOTE | 2018-03-26 18:19 | NUR ---
SUMMARY PT SITTING UP AT THE EDGE OF THE BED EATING HIS DINNER, PT HAS BEEN COOPERATIVE WITH CARE, SPEECH IS RAMLING WITH A FLIGHT OF IDEAS, DIFFICULT TO FOLLOW, PT'S BROTHER HAS CALLED TO CHECK ON THE PT, PT'S FRIEND HAS BEEN IN TO VISIT SEVERAL TIMES TO VISIT, CARE MANAGEMENT IS WORKING ON A DISCHARGE PLAN AND SOMEONE FROM [facility] WILL BE IN TO SEE THE PT TOMORROW AT 10:00 AM, PT IS AWARE, VSS, NO ACUTE CHANGES, WILL CONT TO MONITOR
--- NOTE | 2018-03-27 06:41 | NUR ---
SHIFT SUMMARY PT IS A 57 Y/O MALE, ADMITTED FOR PSYCHOSIS AFTER HE STOPPED TAKING HIS BIPOLAR MEDICATIONS. HE APPEARED A&O X 2-3 WITH RAMBLING SPEECH, THOUGH HAD PERIODS OF INCREASED CONFUSION AND DISORIENTATION DURING THE NIGHT. PT TENDED TO WANDER AROUND HIS ROOM WHILE AWAKE, THOUGH HIS AMBULATION WAS UNSTEADY AND HE WAS MADE A 1PA UP TO THE BATHROOM. HE REPORTED BACK PAIN WHICH WAS RELIEVED WITH PRN TYLENOL, AND DENIED ANY NAUSEA OR SOB. VITAL SIGNS STABLE. NO OTHER ACUTE CHANGES IN PT CONDITION NOTED DURING THE NIGHT. WILL CONTINUE TO MONITOR AND TREAT PER EMAR.
--- NOTE | 2018-03-27 14:59 | NUR ---
BROTHER SPOKE WITH PT'S BROTHER JERRICA ON THE PHONE, GAVE HIS NUMBER TO CARE MANAGEMENT JERRICA JOHNS [phone]
--- NOTE | 2018-03-27 18:20 | NUR ---
SUMMARY PT SITTING UP AT THE EDGE OF THE BED EATING HIS DINNER, PT IS VERY FORGETFUL AND IMPULSIVE, WANDERS IN THE HALLS FREQUENTLY, PT IS COOPERATIVE WITH CARE, VERY FIDGETY AND RESTLESS IN HIS ROOM, PT USES HIS CALL LIGHT FREQUENTLY BUT NOT ALWAYS APPROPRIATELY AND NEEDS FREQUENT EDUCATION ON WHAT THE DIFFERENT BUTTONS FOR HIS REMOTE DO AND EDUCATION ON HOW THE PHONE WORKS, STAFF FROM [facility] CAME TO SEE THE PT, CARE MANAGEMENT WORKING ON A DISCHARGE PLAN, VSS, NO ACUTE CHANGES, WILL CONT TO MONITOR
--- NOTE | 2018-03-28 06:05 | NUR ---
SHIFT SUMMARY PT IS A 57 Y/O MALE, ADMITTED FOR PSYCHOSIS. HE IS A&O X 2, THOUGH CONFUSED AND DISORIENTED AT TIMES, WITH RAMBLING SPEECH AND A FLIGHT OF IDEAS. HE IS RESTLESS IN HIS ROOM, WANDERING AROUND HIS BED. HE WAS INCREASINGLY CONFUSED AND AGITATED DURING THE FIRST HALF OF THE NIGHT. HE WANDERED INTO ANOTHER PATIENTS ROOM, AND STARTED TO SWING AT STAFF WHEN THEY TRIED TO REDIRECT HIM BACK TO HIS ROOM. THIS RN ALSO CAUGHT THE PT SMOKING IN HIS ROOM, TO WHICH HE RESPONDED "I DIDN'T KNOW I WASN'T SUPPOSED TO SMOKE". HIS CIGARETTES AND CRAFT WORKER WERE TAKEN AND PLACED IN HIS LOCKED DRAWER. SECURITY WAS CALLED TO SEARCH HIS PERSONAL BELONGINGS, AND NO OTHER CIGARETTES WERE FOUND. PT IS ALSO AGITATED THIS AM, STATING THAT HE'S "READY TO GO HOME". BP WAS LOW DURING AM VITALS AT 93/53. ALL OTHER VITALS REMAINED STABLE. NO OTHER ACUTE CHANGES IN PT CONDITION NOTED DURING THE NIGHT. WILL CONTINUE TO MONITOR AND TREAT PER EMAR UNTIL HAND OFF TO DAY SHIFT.
[2018-03-28] MEDS ORDERED: Hair, Skin & N1 EACH PO (14:42)
--- NOTE | 2018-03-28 15:01 | NUR ---
SUMMARY/DISCHARGE PT DISCHARGED TO HOME WITH HOME HEALTH, FOLLOW UP APPOINTMENT HAS BEEN SCHEDULED, MEDS FAXED TO HIS PREFERRED PHARMACY, PT ABLE TO TELL ME WHAT MEDS HE NEEDS TO BE TAKING, PT VERBALIZED UNDERSTANDING OF FOLLOW UP APPOINTMENT, PT'S FRIEND RAÚL IS ON HIS WAY TO GET HIM, PT DECLINED WAITING IN THE ROOM, WALKED THE PT SAFELY TO THE ELEVATOR AND DIRECTED HIM TO THE 2ND FLOOR EXIT
== END 2018-03-28 14:55 | disposition home health service (06) | DRG 641 ==
LOC: ER 17:08 → EOR 17:09 → MEDS 17:09
PROVIDERS: Emergency Medicine; Internal Medicine; Nurse Practitioner Psychiatric/Mental Health; ADMIT Internal Medicine
DX: E86.0 Dehydration (principal); G31.2 Degeneration of nervous system due to alcohol; D63.8 Anemia in other chronic diseases classified elsewhere; D69.6 Thrombocytopenia, unspecified; G40.909 Epilepsy, unspecified, not intractable, without status epilepticus; Z91.14 Patient's other noncompliance with medication regimen; E87.6 Hypokalemia; F31.9 Bipolar disorder, unspecified; F10.20 Alcohol dependence, uncomplicated; F41.9 Anxiety disorder, unspecified; F17.210 Nicotine dependence, cigarettes, uncomplicated
CPT/HCPCS: 36415; 70450; 71045; 80053; 80164; 80178; 81001; 82140; 82607; 82728; 82746; 83540; 83550; 83735; 84132; 85025; 85027; 85730; 87086; 96361; 96365; 97116; 97162; 97165; 97530; 97535; 99285-25; G0480; J0696; J3480; J7030; J7040; Q3014

== ENCOUNTER 2018-04-07 14:36 | Observation (INO) | payer MEDICARE ==
[~2018-04-07] VITALS: Ht 185.4 cm; Wt 60.5 kg
[~2018-04-07 14:36] MED LIST changes: +Hair, Skin & N1 EACH PO
[2018-04-07 15:07] LABS: BASOPHILS ABSOLUTE AUTO 0.02 K/mm3 (0.00-0.23); BASOPHILS PERCENT AUTO 0 % (0-2); EOSINOPHILS ABSOLUTE AUTO 0.06 K/mm3 (0.00-0.68); EOSINOPHILS PERCENT AUTO 1 % (0-6); Hematocrit 35.3 % (37.0-53.0); Hemoglobin 11.4 g/dL (13.5-17.5); IMMATURE GRAN ABSOLUTE AUTO 0.01 K/mm3 (0.00-0.10); IMMATURE GRAN PERCENT AUTO 0 % (0-1); LYMPHOCYTES ABSOLUTE AUTO 3.05 K/mm3 (0.84-5.20); LYMPHOCYTES PERCENT AUTO 45 % (21-46); MONOCYTES PERCENT AUTO 12 % (4-13); Mean Corpuscular HGB 36.7 pg (26.0-34.0); Mean Corpuscular HGB Conc 32.3 g/dL (31.5-36.5); Mean Corpuscular Volume 114 fL (80-100); NEUTROPHILS PERCENT AUTO 42 % (41-73); Platelet Count 267 K/mm3 (150-400); RDW Standard Deviation 67.6 fL (35.1-46.3); Red Blood Cell Count 3.11 M/mm3 (4.30-5.90); White Blood Cell Count 6.74 K/mm3 (4.00-11.30)
[2018-04-07] MEDS ORDERED: BUSP10 PO (15:25)
[2018-04-07 15:40] LABS: Alanine Aminotransfer (ALT/SGP 40 U/L (12-78); Albumin, Blood 2.6 g/dL (3.4-5.0); Albumin/Globulin Ratio 0.5 (0.8-1.8); Alk Phos 70 U/L (50-136); Anion Gap 6 mmol/L (6-16); Aspartate Aminotrans (AST/SGOT 74 U/L (12-37); Bilirubin, Total 0.8 mg/dL (0.1-1.0); Blood Urea Nitrogen 4 mg/dL (8-24); Bun/Creatinine Ratio 5.2 (12.0-20.0); CO2, Blood 27 mmol/L (21-32); Chloride, Blood 108 mmol/L (98-108); Creatinine, Blood 0.77 mg/dL (0.60-1.20); Globulin, Blood 4.9 g/dL (2.2-4.0); Glomerular Filtration Rate >60 (60-); Glucose, Blood 82 mg/dL (70-99); Potassium, Blood 3.9 mmol/L (3.5-5.5); Sodium, Blood 141 mmol/L (136-145); Total Protein, Blood 7.5 g/dL (6.4-8.2)
[2018-04-07] MEDS ORDERED: LITH300ER PO ×2 (17:52→17:53)
[2018-04-07] MEDS ORDERED: DIVA500EC PO (18:00)
[2018-04-07 19:20] LABS: Valproic Acid 83.3 ug/mL (50.0-100.0)
[2018-04-07 21:35] LABS: U Amphetamine Screen Not Detected; U Barbituate Screen Not Detected; U Benzodiazapine Screen Not Detected; U Buprenorphine Screen Not Detected; U Cannabinoids Screen Not Detected; U Cocaine Screen Not Detected; U Methadone Screen Not Detected; U Methamphetamine Screen Not Detected; U Opiates Screen Not Detected; U Oxycodone Screen Not Detected; U Phencyclidine Screen Not Detected; U Propoxyphene Screen Not Detected
--- NOTE | 2018-04-08 04:38 | NUR ---
04/08/18 0440 AWAKENED FOR AM VITALS. VOIDING QS. CIWA DONE Q 4 HOURS AND STABLE AT PRESENT. VITALS STABLE. SLEPT WELL THIS SHIFT AND IS MORE CONGENIAL THIS AM FROM LAST NIGHT. FEET ELEVATED UP ON PILLOWS THIS AM. LEFT FOOT/LEG MORE SWOLLEN AND RED THAN RT FOOT/LEG. NO C/O PAIN AT THIS TIME.
[2018-04-08 08:23] LABS: BASOPHILS ABSOLUTE AUTO 0.02 K/mm3 (0.00-0.23); BASOPHILS PERCENT AUTO 0 % (0-2); EOSINOPHILS ABSOLUTE AUTO 0.07 K/mm3 (0.00-0.68); EOSINOPHILS PERCENT AUTO 1 % (0-6); Hematocrit 38.6 % (37.0-53.0); Hemoglobin 12.3 g/dL (13.5-17.5); IMMATURE GRAN ABSOLUTE AUTO 0.01 K/mm3 (0.00-0.10); IMMATURE GRAN PERCENT AUTO 0 % (0-1); LYMPHOCYTES ABSOLUTE AUTO 2.75 K/mm3 (0.84-5.20); LYMPHOCYTES PERCENT AUTO 39 % (21-46); MONOCYTES ABSOLUTE AUTO 0.83 K/mm3 (0.16-1.47); MONOCYTES PERCENT AUTO 12 % (4-13); Mean Corpuscular HGB 35.8 pg (26.0-34.0); Mean Corpuscular HGB Conc 31.9 g/dL (31.5-36.5); Mean Corpuscular Volume 112 fL (80-100); NEUTROPHILS ABSOLUTE AUTO 3.33 K/mm3 (1.96-9.15); NEUTROPHILS PERCENT AUTO 48 % (41-73); Platelet Count 238 K/mm3 (150-400); RDW Coefficient Variation 15.9 % (11.7-14.2); RDW Standard Deviation 67.5 fL (35.1-46.3); Red Blood Cell Count 3.44 M/mm3 (4.30-5.90); White Blood Cell Count 7.01 K/mm3 (4.00-11.30)
[2018-04-08 08:47] LABS: Anion Gap 6 mmol/L (6-16); Blood Urea Nitrogen 8 mg/dL (8-24); Bun/Creatinine Ratio 10.2 (12.0-20.0); CO2, Blood 25 mmol/L (21-32); Calcium, Blood 7.9 mg/dL (8.5-10.1); Chloride, Blood 112 mmol/L (98-108); Creatinine, Blood 0.79 mg/dL (0.60-1.20); Glomerular Filtration Rate >60 (60-); Glucose, Blood 81 mg/dL (70-99); Potassium, Blood 4.3 mmol/L (3.5-5.5); Sodium, Blood 143 mmol/L (136-145); Vancomycin, Trough 12.7 ug/mL (5.0-10.0)
[2018-04-08] MEDS ORDERED: CEPH500 PO (11:54)
[2018-04-08] MEDS ORDERED: ACIDOPHILUS LA1 EACH PO (11:54)
--- NOTE | 2018-04-08 12:58 | NUR ---
DISCHARGE NOTE PT DISCHARGED AND TO BE TRANSPORTED HOME [facility]IA [facility]. STEADY GAIT, DENIES PAIN OR DISTRESS. IV'S DISCONTINUED INTACT. PT VERBALIZED UNDERSTANDING OF TAKING COMPLETE COURSE OF ANTIBIOTICS AND FOLLOWING UP WITH HIS PCP.
== END 2018-04-08 12:45 | disposition home or self-care (01) ==
LOC: ER 14:36 → MEDS 14:37 → ENPENDDIS 04-08 11:00 → MEDS 04-08 12:45
PROVIDERS: Physician Assistant; ADMIT Internal Medicine
DX: I82.4Z2 Acute embolism and thrombosis of unspecified deep veins of left distal lower extremity (principal); L03.116 Cellulitis of left lower limb; L97.229 Non-pressure chronic ulcer of left calf with unspecified severity; I95.89 Other hypotension; E87.2 Acidosis; F31.9 Bipolar disorder, unspecified; G40.909 Epilepsy, unspecified, not intractable, without status epilepticus; F10.10 Alcohol abuse, uncomplicated; E44.1 Mild protein-calorie malnutrition; B18.2 Chronic viral hepatitis C; F17.210 Nicotine dependence, cigarettes, uncomplicated; Z88.0 Allergy status to penicillin; Z79.899 Other long term (current) drug therapy
CPT/HCPCS: 36415; 80048; 80053; 80164; 80178; 80202; 83605; 85025; 87040; 96361; 96365; 96366; 96367; 96372; 96375; 96376; 99284-25; G0378; G0480; J0690; J1650; J1885; J3370; J7030; J7120

== ENCOUNTER 2018-05-06 04:36 | Emergency (ER) | payer MEDICARE ==
[~2018-05-06] VITALS: Ht 185.4 cm; Wt 63.5 kg
[~2018-05-06 04:36] MED LIST changes: +ACIDOPHILUS LA1 EACH PO; +CEPH500 PO; +LITH300ER PO
== END 2018-05-06 06:50 | disposition home or self-care (01) ==
LOC: ER 04:36
DX: M25.551 Pain in right hip (principal); Z88.0 Allergy status to penicillin; Z79.899 Other long term (current) drug therapy; F41.9 Anxiety disorder, unspecified; F31.9 Bipolar disorder, unspecified; F43.10 Post-traumatic stress disorder, unspecified; F17.200 Nicotine dependence, unspecified, uncomplicated
CPT/HCPCS: 73502; 96372; 99283-25; A9270-GY; J1885

== ENCOUNTER 2019-01-08 06:13 | Inpatient (IN) | payer MEDICARE ==
[~2019-01-08] VITALS: Ht 182.9 cm; Wt 62.5 kg
[2019-01-08 06:37] LABS: BASOPHILS ABSOLUTE AUTO 0.03 K/mm3 (0.00-0.23); BASOPHILS PERCENT AUTO 0 % (0-2); EOSINOPHILS PERCENT AUTO 0 % (0-6); Hematocrit 38.1 % (37.0-53.0); IMMATURE GRAN ABSOLUTE AUTO 0.04 K/mm3 (0.00-0.10); IMMATURE GRAN PERCENT AUTO 1 % (0-1); LYMPHOCYTES ABSOLUTE AUTO 1.28 K/mm3 (0.84-5.20); LYMPHOCYTES PERCENT AUTO 17 % (21-46); MONOCYTES PERCENT AUTO 17 % (4-13); Mean Corpuscular HGB 35.3 pg (26.0-34.0); Mean Corpuscular HGB Conc 34.1 g/dL (31.5-36.5); Mean Corpuscular Volume 104 fL (80-100); Mean Platelet Volume 12.1 fL (9.1-12.4); NEUTROPHILS PERCENT AUTO 65 % (41-73); Platelet Count 60 K/mm3 (150-400); RDW Coefficient Variation 15.9 % (11.7-14.2); RDW Standard Deviation 61.1 fL (35.1-46.3); Red Blood Cell Count 3.68 M/mm3 (4.30-5.90); White Blood Cell Count 7.45 K/mm3 (4.00-11.30)
[2019-01-08 06:51] LABS: Alanine Aminotransfer (ALT/SGP 55 U/L (12-78); Albumin, Blood 3.4 g/dL (3.4-5.0); Albumin/Globulin Ratio 0.7 (0.8-1.8); Alk Phos 87 U/L (50-136); Anion Gap 8 mmol/L (6-16); Aspartate Aminotrans (AST/SGOT 95 U/L (12-37); Bilirubin, Total 2.1 mg/dL (0.1-1.0); Blood Urea Nitrogen 13 mg/dL (8-24); Bun/Creatinine Ratio 14.5 (12.0-20.0); CO2, Blood 28 mmol/L (21-32); Chloride, Blood 98 mmol/L (98-108); Ethanol (Alcohol), Blood, Med <3 mg/dL; Globulin, Blood 4.7 g/dL (2.2-4.0); Glomerular Filtration Rate >60 (60-); Glucose, Blood 157 mg/dL (70-99); Sodium, Blood 134 mmol/L (136-145); Total Protein, Blood 8.1 g/dL (6.4-8.2)
[2019-01-08 06:53] LABS: CPK Creatine Kinase 211 U/L (39-308)
[2019-01-08 06:58] LABS: Valproic Acid 73.3 ug/mL (50.0-100.0)
[2019-01-08 07:15] LABS: Lithium 0.44 mmol/L (0.60-1.20)
[2019-01-08 09:25] LABS: U Amphetamine Screen DETECTED
[2019-01-08 09:26] LABS: U Barbituate Screen Not Detected; U Benzodiazapine Screen DETECTED; U Buprenorphine Screen Not Detected; U Cannabinoids Screen DETECTED; U Cocaine Screen Not Detected; U Methadone Screen Not Detected; U Methamphetamine Screen DETECTED; U Opiates Screen Not Detected; U Oxycodone Screen Not Detected; U Phencyclidine Screen Not Detected; U Propoxyphene Screen Not Detected
--- NOTE | 2019-01-08 12:37 | NUR ---
ADMISSION TO PCU 15. PT ARRIVED TO UNIT VIA GURNEY FROM ED. PT WAS ONLY RESPONSIVE TO PAIN, SUPPORTING HIS OWN AIRWAY ON ROOM AIR. VITALS WERE STABLE. PT DID RECEIVED IV ATIVAN WHILE IN ED FOR SEIZURE LIKE ACTIVITY. PT'S ONLY MOANS WHEN ATTEMPTING TO INTERACT. LUNGS WERE COARSE ONLY IN UPPER LOBES, PT IS UNABLE TO COUGH ON DEMAND TO SEE IF IT WOULD CLEAR. PER ADMINISTRATIVE SUPPORT SPECIALIST, PT IS SINUS RHYTHM ON TELEMETRY. BED IS PADDED AND LIGHTS DIMMED FOR SEIZURE PRECAUTION. ATTEMPTED TO CONTACT FAMILY VIA LISTED PHONE NUMBER AND WAS UNABLE TO REACH.
--- NOTE | 2019-01-08 16:35 | NUR ---
PT IS DIFFICULT TO ARROUSE, RESPONDS TO PAIN AND MOANS. PT IS MOVING ALL EXTREMETIES. PT REMAIN SINUS RYTHMN ON TELE. VITALS ARE STABLE.
--- NOTE | 2019-01-08 19:16 | NUR ---
SHIFT SUMMARY PT REMAINS TO ONLY RESPOND TO PAIN. MOVES AROUND IN BED ON OWN ACCORD. PT REMAINS IN SINUS RYTHMN ON TELEMTRY.
[2019-01-09 04:08] LABS: BASOPHILS ABSOLUTE AUTO 0.01 K/mm3 (0.00-0.23); BASOPHILS PERCENT AUTO 0 % (0-2); EOSINOPHILS PERCENT AUTO 0 % (0-6); Hematocrit 39.8 % (37.0-53.0); Hemoglobin 13.8 g/dL (13.5-17.5); IMMATURE GRAN ABSOLUTE AUTO 0.04 K/mm3 (0.00-0.10); IMMATURE GRAN PERCENT AUTO 1 % (0-1); LYMPHOCYTES ABSOLUTE AUTO 1.91 K/mm3 (0.84-5.20); LYMPHOCYTES PERCENT AUTO 27 % (21-46); MONOCYTES ABSOLUTE AUTO 1.17 K/mm3 (0.16-1.47); MONOCYTES PERCENT AUTO 17 % (4-13); Mean Corpuscular HGB 35.8 pg (26.0-34.0); Mean Corpuscular HGB Conc 34.7 g/dL (31.5-36.5); Mean Corpuscular Volume 103 fL (80-100); Mean Platelet Volume 11.6 fL (9.1-12.4); NEUTROPHILS PERCENT AUTO 56 % (41-73); Platelet Count 69 K/mm3 (150-400); RDW Coefficient Variation 15.9 % (11.7-14.2); RDW Standard Deviation 60.9 fL (35.1-46.3); Red Blood Cell Count 3.86 M/mm3 (4.30-5.90); White Blood Cell Count 7.03 K/mm3 (4.00-11.30)
[2019-01-09 04:20] LABS: International Normalized Ratio 1.19; Prothrombin Time Results 12.4 Sec (9.7-11.5)
[2019-01-09 04:24] LABS: Alanine Aminotransfer (ALT/SGP 51 U/L (12-78); Albumin/Globulin Ratio 0.7 (0.8-1.8); Alk Phos 79 U/L (50-136); Anion Gap 8 mmol/L (6-16); Aspartate Aminotrans (AST/SGOT 79 U/L (12-37); Bilirubin, Total 2.3 mg/dL (0.1-1.0); Blood Urea Nitrogen 6 mg/dL (8-24); Bun/Creatinine Ratio 8.4 (12.0-20.0); CO2, Blood 26 mmol/L (21-32); Calcium, Blood 8.2 mg/dL (8.5-10.1); Chloride, Blood 99 mmol/L (98-108); Creatinine, Blood 0.71 mg/dL (0.60-1.20); Globulin, Blood 4.5 g/dL (2.2-4.0); Glomerular Filtration Rate >60 (60-); Glucose, Blood 123 mg/dL (70-99); Potassium, Blood 3.4 mmol/L (3.5-5.5); Sodium, Blood 133 mmol/L (136-145); Total Protein, Blood 7.5 g/dL (6.4-8.2)
--- NOTE | 2019-01-09 07:30 | NUR ---
ASSUMED CARE: RESTING AT THIS TIME. OPENS EYES AND SAYS THAT HE IS IN HOSPITAL. MUMBLES FURTHER ANSWERS. MOVES IN BED AND IS ROUSABLE
--- NOTE | 2019-01-09 07:52 | NUR ---
SHIFT SUMMARY PATIENT LETHARGIC LAST NIGHT AND WOULD INITALLY RESPOND TO TOUCH AND PRESSURE BUT PATIENT BECAME MORE EASILY AROUSIBLE WITH VERBAL STIMULI THROUGHOUT THE NIGHT. PATIENT ASLO BEGAN TO MOVE ABOUT THE BED MORE WELL. THIS MORNING AT APPROX 0500 PATIENT OPENED HIS EYES AND STARTED TO MUMBLE. SPEECH NOT UNDERSTANDABLE AT THIS TIME BUT PATIENT WAS OPEING HIS EYES AND TALKING WHICH HE WAS NOT DOING AT THE BEGINNNG OF THE NIGHT. PATIENT APPERS TO BE BECOMING LESS LETHARGIC THIS MORNING. IV FLUIDS RUNNING PER ORDERS. REPORT GIVEN TO ONCOMING RN.
--- NOTE | 2019-01-09 10:30 | NUR ---
SAT PT UP 90 DEGREES, OPENS EYES AND FOLLOW INSTRUCTIONS BUT VERY DROWSY. ABLE TO SWALLOW SAFELY WHEN GIVEN SIPS OF WATER. DISSOLVED POTASSIUM TABS IN WATER AND PT WAS ABLE TO TAKE SAFELY THIS WAY
--- NOTE | 2019-01-09 14:51 | NUR ---
Initial palliative care consult: Umang is a 58 year old with a history of epilepsy, bipolar, polysubstance abuse, ETOH, Hepatitis C and a subdural hematoma. He was admitted to [facility] on 01/08/19 after he was found wandering by a neighbor. His tox screen is positive for amphetamines, methamphetamines, and cannabis as well as lithium and valproic acid which he is prescribed. Update rec'd from nursing. Umang is starting to become more responsive according to staff. He was able to take PO medications earlier this shift. Attempted to visit with him and engage him in a conversation. Umang did awaken some when his name was called and his knee was touched. He did not want to open his eyes. He denies pain or nausea at the present time. His words are mumbled but this documentation writer was able to understand him denying pain and nausea. When asked if he was tired he shook his head yes. He did not want to engage in any further conversation at this time. He has seizure pads in place to the bedrails for his safety. Old chart notes reviewed from his admission in March of this year. Will attempt to contact his NOK for further history and information as he is unable to provide it at this time. PC will continue to follow for symptom managment and advanced care planning.
[2019-01-09 17:43] LABS: Salicylate <1.7 mg/dL (2.8-20.0)
[2019-01-09 17:44] LABS: Acetaminophen, Random <2.0 ug/mL (10.0-30.0)
--- NOTE | 2019-01-09 18:38 | NUR ---
SHIFT SUMMARY: PT REMAINS EASILY ROUSEABLE BUT LETHARGIC. OPENS EYES AND MOVES IN BED. MUMBLES AND RESPONDS TO SOME QUESTIONS. 3 DOSES NARCAN GIVEN WITH NO RESULT. MD AWARE. HEAD CT RECENTLY COMPLETED, NO RESULT OF YET.
[2019-01-10 03:58] LABS: BASOPHILS ABSOLUTE AUTO 0.02 K/mm3 (0.00-0.23); BASOPHILS PERCENT AUTO 0 % (0-2); EOSINOPHILS ABSOLUTE AUTO 0.02 K/mm3 (0.00-0.68); EOSINOPHILS PERCENT AUTO 0 % (0-6); Hematocrit 41.4 % (37.0-53.0); IMMATURE GRAN ABSOLUTE AUTO 0.02 K/mm3 (0.00-0.10); IMMATURE GRAN PERCENT AUTO 0 % (0-1); LYMPHOCYTES PERCENT AUTO 34 % (21-46); MONOCYTES ABSOLUTE AUTO 1.35 K/mm3 (0.16-1.47); MONOCYTES PERCENT AUTO 19 % (4-13); Mean Corpuscular HGB 35.4 pg (26.0-34.0); Mean Corpuscular HGB Conc 33.8 g/dL (31.5-36.5); Mean Corpuscular Volume 105 fL (80-100); Mean Platelet Volume 11.8 fL (9.1-12.4); NEUTROPHILS ABSOLUTE AUTO 3.35 K/mm3 (1.96-9.15); NEUTROPHILS PERCENT AUTO 46 % (41-73); Platelet Count 95 K/mm3 (150-400); RDW Coefficient Variation 15.9 % (11.7-14.2); RDW Standard Deviation 61.4 fL (35.1-46.3); Red Blood Cell Count 3.95 M/mm3 (4.30-5.90); White Blood Cell Count 7.26 K/mm3 (4.00-11.30)
[2019-01-10 04:15] LABS: Alanine Aminotransfer (ALT/SGP 41 U/L (12-78); Albumin, Blood 2.7 g/dL (3.4-5.0); Albumin/Globulin Ratio 0.6 (0.8-1.8); Alk Phos 75 U/L (50-136); Anion Gap 5 mmol/L (6-16); Aspartate Aminotrans (AST/SGOT 66 U/L (12-37); Bilirubin, Total 2.3 mg/dL (0.1-1.0); Blood Urea Nitrogen 5 mg/dL (8-24); Bun/Creatinine Ratio 7.5 (12.0-20.0); CO2, Blood 28 mmol/L (21-32); Calcium, Blood 8.4 mg/dL (8.5-10.1); Chloride, Blood 103 mmol/L (98-108); Creatinine, Blood 0.67 mg/dL (0.60-1.20); Globulin, Blood 4.3 g/dL (2.2-4.0); Glomerular Filtration Rate >60 (60-); Glucose, Blood 85 mg/dL (70-99); Potassium, Blood 3.9 mmol/L (3.5-5.5); Sodium, Blood 136 mmol/L (136-145)
--- NOTE | 2019-01-10 05:39 | NUR ---
SHIFT SUMMARY: PATIENT BECOMING MORE ALERT, ABLE TO STAY AWAKE FOR LONGER PERIODS OF TIME. PATIENT TRYING TO GET OOB SEVERAL TIMES, LIMBS WEAK AND SHAKING. PATIENT ABLE TO TELL STAFF THAT HE IS IN THE HOSPITAL BUT NOT ABLE TO TELL STAFF DATE/TIME, CITY, MONTH, YEAR. PATIENT SPEAKING WITH AGGITATION TO A NONEXISTANT PERSON (HALLUCINATING) BUT SPEECH IS HARD TO FULLY COMPREHEND. VSS, BED LOW AND LOCKED WITH EXIT ALARM ON, CALL LIGHT WITHIN REACH, VEST ON, STAFF MONITORING PATIENT VERY CLOSELY AT THIS TIME.
--- NOTE | 2019-01-10 07:30 | NUR ---
ASSUMED CARE: PT RESTING IN BED, ROLO VEST IN PLACE, BED ALARM ON. NO NEEDS AT THIS TIME.
--- NOTE | 2019-01-10 08:38 | NUR ---
PT WAS SITTING UP IN BED, PULLING ON GOWN. ASKED IF HE KNEW WHERE HE WAS ND HE ANSWERED WITH NO. WHEN ASKING HOW HE WAS FEELING HE STATED HE FELT WEIRD. DEV RN ENTERED ROOM AND ASSESSED SWALLOWING ABILITY AND GAVE TRAY. SHE THEN REASSESSED A FEW MINUTES LATER AND FOUND HE DRANK HIS ENSURE BUT SPILLED HIS MILK AND WAS PLAYING WITH IT. WILL CONTINUE TO MONITOR
--- NOTE | 2019-01-10 15:35 | NUR ---
ASSUMED CARE APPROXIMATELY 0700; PT AWAKE AND TRYING TO SIT UP AND PULL ON LINES; PT SAID "GOOD MORNING" BUT UNABLE TO ANSWER QUESTIONS; EDUCATED PT ON NOT PULLING LINES; PT DRANK AN ENSURE FOR BREAKFAST, PLAYED W/ REST OF TRAY AND SMEARED IT ON BEDRAILS; ATTTENDS IN PLACE DUE TO INCONTINENCE; CALL LIGHT IN REACH; BED IN LOWEST POSITION; WILL CONTINUE TO MONITOR CLOSELY
--- NOTE | 2019-01-10 18:08 | NUR ---
SHIFT SUMMARY PT SLEEPING MOST OF THE DAY; HARD TO AROUSE AT TIMES; PT ON RA; O2 SATS >94; EXTREMITIES WARM AND DRY; FLUIDS OFFERED FREQUENTLY; ATTENDS IN PLACE; WILL CONTINUE TO MONITOR UNTIL HAND OFF TO NOC RN
[2019-01-10 19:36] LABS: BASOPHILS ABSOLUTE AUTO 0.02 K/mm3 (0.00-0.23); BASOPHILS PERCENT AUTO 0 % (0-2); EOSINOPHILS ABSOLUTE AUTO 0.03 K/mm3 (0.00-0.68); EOSINOPHILS PERCENT AUTO 0 % (0-6); Hematocrit 38.4 % (37.0-53.0); Hemoglobin 13.2 g/dL (13.5-17.5); IMMATURE GRAN ABSOLUTE AUTO 0.02 K/mm3 (0.00-0.10); IMMATURE GRAN PERCENT AUTO 0 % (0-1); LYMPHOCYTES ABSOLUTE AUTO 2.32 K/mm3 (0.84-5.20); LYMPHOCYTES PERCENT AUTO 34 % (21-46); MONOCYTES ABSOLUTE AUTO 1.44 K/mm3 (0.16-1.47); MONOCYTES PERCENT AUTO 21 % (4-13); Mean Corpuscular HGB Conc 34.4 g/dL (31.5-36.5); Mean Corpuscular Volume 105 fL (80-100); Mean Platelet Volume 12.2 fL (9.1-12.4); NEUTROPHILS ABSOLUTE AUTO 3.09 K/mm3 (1.96-9.15); NEUTROPHILS PERCENT AUTO 45 % (41-73); Platelet Count 104 K/mm3 (150-400); RDW Standard Deviation 62.2 fL (35.1-46.3); Red Blood Cell Count 3.67 M/mm3 (4.30-5.90); White Blood Cell Count 6.92 K/mm3 (4.00-11.30)
[2019-01-11 03:56] LABS: BASOPHILS ABSOLUTE AUTO 0.02 K/mm3 (0.00-0.23); BASOPHILS PERCENT AUTO 0 % (0-2); EOSINOPHILS ABSOLUTE AUTO 0.03 K/mm3 (0.00-0.68); EOSINOPHILS PERCENT AUTO 1 % (0-6); Hematocrit 36.5 % (37.0-53.0); Hemoglobin 12.2 g/dL (13.5-17.5); IMMATURE GRAN ABSOLUTE AUTO 0.02 K/mm3 (0.00-0.10); IMMATURE GRAN PERCENT AUTO 0 % (0-1); LYMPHOCYTES ABSOLUTE AUTO 2.24 K/mm3 (0.84-5.20); LYMPHOCYTES PERCENT AUTO 36 % (21-46); MONOCYTES ABSOLUTE AUTO 1.38 K/mm3 (0.16-1.47); MONOCYTES PERCENT AUTO 22 % (4-13); Mean Corpuscular HGB 35.7 pg (26.0-34.0); Mean Corpuscular HGB Conc 33.4 g/dL (31.5-36.5); Mean Corpuscular Volume 107 fL (80-100); Mean Platelet Volume 11.5 fL (9.1-12.4); NEUTROPHILS ABSOLUTE AUTO 2.51 K/mm3 (1.96-9.15); NEUTROPHILS PERCENT AUTO 41 % (41-73); Platelet Count 110 K/mm3 (150-400); RDW Coefficient Variation 16.2 % (11.7-14.2); Red Blood Cell Count 3.42 M/mm3 (4.30-5.90)
[2019-01-11 04:12] LABS: Alanine Aminotransfer (ALT/SGP 31 U/L (12-78); Albumin, Blood 2.3 g/dL (3.4-5.0); Albumin/Globulin Ratio 0.6 (0.8-1.8); Alk Phos 63 U/L (50-136); Anion Gap 4 mmol/L (6-16); Aspartate Aminotrans (AST/SGOT 52 U/L (12-37); Bilirubin, Total 1.3 mg/dL (0.1-1.0); Blood Urea Nitrogen 9 mg/dL (8-24); Bun/Creatinine Ratio 12.4 (12.0-20.0); CO2, Blood 29 mmol/L (21-32); Calcium, Blood 8.3 mg/dL (8.5-10.1); Chloride, Blood 106 mmol/L (98-108); Creatinine, Blood 0.73 mg/dL (0.60-1.20); Globulin, Blood 3.9 g/dL (2.2-4.0); Glomerular Filtration Rate >60 (60-); Glucose, Blood 98 mg/dL (70-99); Potassium, Blood 4.2 mmol/L (3.5-5.5); Sodium, Blood 139 mmol/L (136-145); Total Protein, Blood 6.2 g/dL (6.4-8.2)
--- NOTE | 2019-01-11 07:25 | NUR ---
PATIENT IS MORE AWAKE, ALERT TO SELF, STATED THAT HE IS OUT OF THE EPISODE BACK TO NORMAL, ABLE TO MAITIAN CONVERSATION. ABLE TO FEED SELF. PT HAS DIFFICULTY WITH SHORT TERM MEMORY. AGITATION AT TIME. BED LOW AND LOCK , CALL LIGHT IN REACH EXIT ALRAM ON, AND VSS.
--- NOTE | 2019-01-11 09:17 | NUR ---
ASSUMED CARE PT ALERT AND TALKING THIS MORNING; SITTING UP IN BED EATING BREAKFAST TRAY; PT SPEAKING NEPALI BUT MUMBLED TO SELF "I DON'T UNDERSTAND THIS LANGUAGE". PT STATES HE IS WORRIED ABOUT HIS DOG; ASKED IF THERE WAS SOMEONE HE COULD CALL, PT MUMBLED AND THEN STATED HE IS FROM [place]; AGAIN ASKED IF THERE WAS SOMEONE THIS RN COULD CALL FOR HIM, PT STATED NO; PT DENIES PAIN; DENIES NEEDS AT THIS TIME; VSS; ON RA W/ O2 SATS >94; CALL LIGHT IN REACH; BED IN LOWEST POSITION W/ BED ALARM ON
--- NOTE | 2019-01-11 17:35 | NUR ---
SUMMARY PT TRANSFER FROM PCU9. DX ENCEPHALOPATHY. CENTRAL SUPPLY CLERK STATE PT HAS IMPROVED SOMEWHAT, HOWEVER CONFUSED, STATE RELEASED FROM ROLO RESTRAINT THIS AM. ON ARRIVAL TO ROOM PT IS VERY CONFUSED, ANSWERS TO NAME HOWEVER UNABLE TO STATE PLACE/LOCATION, WHEN TOLD HE IS IN HOSP REPEATS "I KNOW, I KNOW". UNABLE OT REORIENT @ THIS TIME. HE HAS NOT ATTEMPTED OOB OR PULL @ IV LINE. HE WAS ABLE TO EAT W SOME ASSIST HOWEVER ODD BEHAVIOR, MANAGER PHARMACY REPORT PLACED HIS DRINKING CUP IN HIS URINAL. HE DOES NOT USE CALL SYSTEM, HE HAS BEEN INCONT OF URINE, IN ATTENDS. VSS. HAVE ATTEMPTED CIWA HOWEVER DIFFICULT TO SCORE D/T CONFUSION, NO TREMORS NOTED.
[2019-01-11 18:19] LABS: BASOPHILS ABSOLUTE AUTO 0.02 K/mm3 (0.00-0.23); BASOPHILS PERCENT AUTO 0 % (0-2); EOSINOPHILS ABSOLUTE AUTO 0.01 K/mm3 (0.00-0.68); EOSINOPHILS PERCENT AUTO 0 % (0-6); Hematocrit 34.9 % (37.0-53.0); Hemoglobin 11.9 g/dL (13.5-17.5); IMMATURE GRAN ABSOLUTE AUTO 0.02 K/mm3 (0.00-0.10); IMMATURE GRAN PERCENT AUTO 0 % (0-1); LYMPHOCYTES ABSOLUTE AUTO 1.55 K/mm3 (0.84-5.20); LYMPHOCYTES PERCENT AUTO 25 % (21-46); MONOCYTES ABSOLUTE AUTO 1.16 K/mm3 (0.16-1.47); MONOCYTES PERCENT AUTO 19 % (4-13); Mean Corpuscular HGB 35.8 pg (26.0-34.0); Mean Corpuscular HGB Conc 34.1 g/dL (31.5-36.5); Mean Corpuscular Volume 105 fL (80-100); Mean Platelet Volume 11.5 fL (9.1-12.4); NEUTROPHILS ABSOLUTE AUTO 3.34 K/mm3 (1.96-9.15); NEUTROPHILS PERCENT AUTO 55 % (41-73); Platelet Count 128 K/mm3 (150-400); RDW Coefficient Variation 16.3 % (11.7-14.2); RDW Standard Deviation 63.9 fL (35.1-46.3); Red Blood Cell Count 3.32 M/mm3 (4.30-5.90)
--- NOTE | 2019-01-12 03:21 | NUR ---
SHIFT SUMMARY PT VERY CONFUSED. ORIENTED TO ONLY HIS BIRTHDAY. REPEATS HIMSELF ALOT ABOUT NEEDING TO GO HOME. BED ALARM. PT ALSO IN SEIZURE PRECAUTIONS D/T HX. LS CLEAR, DENIES SOB. NO C/O NAUSEA OR PAIN. SCATTERED BRUISING TO ARMS AND LEGS. R FOREARM IV IS SL. Q4 NEURO. VSS ON RA. INCONTINENT. PT BECOMES VERY AGITATED WITH ATTENDS/BEDDING CHANGES. TRIES TO GRAB AND HIT RN/AUTOCAD TECHNICIAN. PT IS VERY WEAK SO HE IS EASY TO MOVE AND CHANGE. CONCERNED THAT ONCE PT STARTS TO REGAIN STRENGTH HIS BEHAVIOR MIGHT BECOME AN ISSUE.
[2019-01-12 04:51] LABS: BASOPHILS ABSOLUTE AUTO 0.02 K/mm3 (0.00-0.23); BASOPHILS PERCENT AUTO 0 % (0-2); EOSINOPHILS ABSOLUTE AUTO 0.01 K/mm3 (0.00-0.68); EOSINOPHILS PERCENT AUTO 0 % (0-6); Hematocrit 37.3 % (37.0-53.0); Hemoglobin 12.6 g/dL (13.5-17.5); IMMATURE GRAN ABSOLUTE AUTO 0.02 K/mm3 (0.00-0.10); IMMATURE GRAN PERCENT AUTO 0 % (0-1); LYMPHOCYTES ABSOLUTE AUTO 2.06 K/mm3 (0.84-5.20); LYMPHOCYTES PERCENT AUTO 33 % (21-46); MONOCYTES ABSOLUTE AUTO 1.46 K/mm3 (0.16-1.47); MONOCYTES PERCENT AUTO 23 % (4-13); Mean Corpuscular HGB Conc 33.8 g/dL (31.5-36.5); Mean Corpuscular Volume 104 fL (80-100); Mean Platelet Volume 11.5 fL (9.1-12.4); NEUTROPHILS ABSOLUTE AUTO 2.76 K/mm3 (1.96-9.15); NEUTROPHILS PERCENT AUTO 44 % (41-73); Platelet Count 154 K/mm3 (150-400); RDW Coefficient Variation 16.1 % (11.7-14.2); RDW Standard Deviation 61.7 fL (35.1-46.3); White Blood Cell Count 6.33 K/mm3 (4.00-11.30)
[2019-01-12 05:18] LABS: Alanine Aminotransfer (ALT/SGP 37 U/L (12-78); Albumin, Blood 2.6 g/dL (3.4-5.0); Albumin/Globulin Ratio 0.6 (0.8-1.8); Alk Phos 66 U/L (50-136); Anion Gap 6 mmol/L (6-16); Aspartate Aminotrans (AST/SGOT 56 U/L (12-37); Blood Urea Nitrogen 8 mg/dL (8-24); Bun/Creatinine Ratio 12.3 (12.0-20.0); CO2, Blood 27 mmol/L (21-32); Calcium, Blood 8.8 mg/dL (8.5-10.1); Chloride, Blood 104 mmol/L (98-108); Creatinine, Blood 0.65 mg/dL (0.60-1.20); Globulin, Blood 4.2 g/dL (2.2-4.0); Glomerular Filtration Rate >60 (60-); Glucose, Blood 96 mg/dL (70-99); Potassium, Blood 4.1 mmol/L (3.5-5.5); Sodium, Blood 137 mmol/L (136-145); Total Protein, Blood 6.8 g/dL (6.4-8.2)
--- NOTE | 2019-01-12 14:21 | NUR ---
LATE ENTRY. 0745 BED ALARM SOUNDED, PT FOUND IN BATHROOM, URINATING IN SINK. ATTEMPTED TO REORIENT, ALTHOUGH PT WAS UNABLE TO FOLLOW DIRECTIONS, PT EVENTUALLY SELF AMBULATED TO BED WITH DIRECTION. PT CONTINUED WITH CONFUSION, AGITATION, ORIENTATED TO SELF ONLY, VERY POOR MEMORY AND JUDEMENT. PT ALSO APPEARS TO BE HALLUCINATING, PICKING AT THE AIR. PT BECAME AGRESSIVE WITH PHOTOGRAPHIC RESTORER GRABBING HER WRIST, REQUIRE THIS RN TO ASSIST REMOVING HAND FROM WRIST. OT ALSO WAS GRABBED ON WRIST AND WAS ABLE TO FREE SELF, WHICH CAUSED A STOP TO EVAL. 1306 PT TRANSFERRED TO INU RM 346 FOR SAFETY, REPORT GIVEN TO SHANEL DANIELS PRIOR TO TRANSFER. NURSING POT TENDER ASKED TO TURN ON CAMERA FOR SAFETY.
--- NOTE | 2019-01-12 18:38 | NUR ---
SHIFT SUMMARY: PATIENT TRANSFER FROM ROOM 327 THIS SHIFT. PT ALERT; ORIENTED TO SELF; CONFUSED; IMPULSIVE; NON-REDIRECTABLE; BED ALARM & CAMERA ON FOR SAFETY. BANANA BAG THIS SHIFT; NS @ 75 CONTINUING. PT & OT FOLLOWING. REPORT GIVEN TO ONCOMING RN.
--- NOTE | 2019-01-12 19:40 | NUR ---
PATIENT PUSHED CALL LIGHT BUT DID NOT REMEMBER WHY HE DID, IV WAS SOUNDING, OCCLUDED. PATIENT VERY TOUCHY GRABBING TOWARDS FACE AND HANDS. INSTRUCTED TO KEEP HANDS TO SELF AND HE WILL JUST STARE AT ME. UNABLE TO FOLLOW DIRECTIONS TO WELL. BUT WAS ABLE TO STATE NAME, WHAT SHOW HE WAS WATCHING, THAT HE HAD A MOM, THAT THANKSGIVING WAS THIS WEEK, AND DAY OF THE WEEK. HE WAS NOT ABLE TO STATE , TIME, WHY HE WAS HERE, WHERE HE WAS AT. STATED HE NEEDED TO GO HOME, BUT INFORMED HIM WE HAVE TO GET HIM BETTER AND HE DID NOT SEEM TO COMPERHEND IT. SEIZURE PADS ON WITH 4 RAILS UP. WILL CONTINUE TO MONITOR.
--- NOTE | 2019-01-12 23:08 | NUR ---
PATIENT IN ROOM TALKING TO SELF OR TO SOMEONE ELSE. HE WAS GETTING AGGRESSIVE IN HIS CONVERSATION. TALKING ABOUT HOW HIS HE PUT HIS DOG DOWN AND THEN TO KICKING SOMEONE'S BUTT FOR TAKING HIS STUFF. THEN STARTED TO TALK ABOUT HOW HE DOES NOT NEED TO BE IN THE HOSPITAL, HE IS FINE, HE HAS BEEN IN WAY TO MANY. WALKED INTO ROOM HE WAS CLIMBING OUT OF BED. HE GOT VERY AGGITATED AND AGGRESSIVE WITH STAFF TRYING TO PUSH PASS US TO GET UP WHILE PULLING HIS IV LINES. HE STATED HE HAD TO GO TO THE BATHROOM BUT WHEN GIVEN THE URINAL JUST LOOKED AT IT. NOTICED HIS ATTENDS WAS WET. HE DID FOLLOW DIRECTION TO GET BACK TO BED BUT WHEN WE WENT TO CHANGE HIM WOULD GRAB AT US OR PUSHING US AWAY, TRYING TO FIGHT AGAINST US. GOT HIM CHANGED, AND SETTLED BACK TO BED. WILL CALL MD FOR SOMETHING THAT MIGHT HELP CALM HIM DOWN AND NOT BE AGGRESIVE TOWARDS STAFF.
--- NOTE | 2019-01-12 23:51 | NUR ---
CLARFICATION ON ORDERS FOR ATIVAN AND LIBRIUM. ORDERS WERE FOR CIWA MONITORING BUT NO ORDER TO MONITOR CIWA. THEREFORE CALLED NATALIIA DILLON WHO REPORTED THAT THERE SHOULD BE ORDER FOR CIWA, ORDER WAS PUT IN, THEREFORE WAS ABLE TO USE THE MEDICATIONS FOR CIWA. GAVE 2MG OF ATIVAN IV PER ORDERS. THIS HELPED TO CALM ROSALINA DOWN IMMEDIATLY, HE NO LONGER IS PULLING AT THE IV LINE, TRYING TO GET UP, OR BEING AGGRESSIVE WITH STAFF. WILL CONTINUE TO MONITOR FOR CHANGES.
--- NOTE | 2019-01-13 00:04 | NUR ---
PATIENT COMPLETELY SLEEPING, ABLE TO TURN HIM IN BED WITH HIM MOANING ONLY. CHECKED VITALS PER ORDERS AND NOTED A DROP IN BP TO 88/56. SATS GOOD IN THE 90'S RESP 12. WILL RECHECK THE VITALS SINCE ATIVAN WAS JUST GIVEN.
--- NOTE | 2019-01-13 02:00 | NUR ---
PATIENT SLIGHTLY AWAKE, PULLED OUT HIS PENIS AND STARTED TO URINATE OVER THE SIDE OF THE BED. KENNEL MANAGER CAUGHT HIM AND WAS ABLE TO COVER TO PREVENT LARGE MESS. CLEANSED THE PATIENT UP AND CHANGED OUT LINEN AND ATTENDS. IV SITE GOT SATURATED WITH URINE, ON REMOVEAL OF COBAN NOTICED IV WAS INFILTRATED. DC'D IV. ATTEMPTED IV IN THE RIGHT UPPER ARM BUT THE PATIENT PULLED I WAS STARTING AND I WAS UNABLE TO GET ONE IN. WAS ABLE TO START ONE ON THE LEFT FA 22G WITH NO PROBLEMS, HOOKED UP IV FLUIDS, COVERED WITH COBAN AND HOPE HE DOES NOT PULL ON THE LINE TURNING IN BED. WILL CONTINUE TO MONITOR.
--- NOTE | 2019-01-13 04:44 | NUR ---
PATIENT JUST GOT UP OUT OF BED PULLING AT HIS IV LINE, CONFUSED AND STATING HE HAD TO GO TO THE BATHROOM. ENCOURAGED HIM TO LAY BACK IN BED, GRABBED THE URNIAL AND ASSISTED IN VOIDING. HE VOIDED 100 AND ALSO SATURATED HIS ATTENDS. CHANGED HIS ATTENDS AND SITUATED HIM BACK TO BED. IV LINE WAS LUCKLY NOT PULLED OUT AND STILL FLOWING GOOD. BED ALARM ON AND SIDE RAILS UP FOR SEIZURE PRECAUTIONS.
[2019-01-13 05:44] LABS: BASOPHILS ABSOLUTE AUTO 0.03 K/mm3 (0.00-0.23); BASOPHILS PERCENT AUTO 1 % (0-2); EOSINOPHILS ABSOLUTE AUTO 0.03 K/mm3 (0.00-0.68); EOSINOPHILS PERCENT AUTO 1 % (0-6); Hematocrit 36.6 % (37.0-53.0); Hemoglobin 12.5 g/dL (13.5-17.5); IMMATURE GRAN ABSOLUTE AUTO 0.01 K/mm3 (0.00-0.10); IMMATURE GRAN PERCENT AUTO 0 % (0-1); LYMPHOCYTES ABSOLUTE AUTO 2.41 K/mm3 (0.84-5.20); LYMPHOCYTES PERCENT AUTO 39 % (21-46); MONOCYTES ABSOLUTE AUTO 1.28 K/mm3 (0.16-1.47); MONOCYTES PERCENT AUTO 21 % (4-13); Mean Corpuscular HGB 35.6 pg (26.0-34.0); Mean Corpuscular HGB Conc 34.2 g/dL (31.5-36.5); Mean Corpuscular Volume 104 fL (80-100); Mean Platelet Volume 11.9 fL (9.1-12.4); NEUTROPHILS ABSOLUTE AUTO 2.49 K/mm3 (1.96-9.15); NEUTROPHILS PERCENT AUTO 40 % (41-73); Platelet Count 161 K/mm3 (150-400); RDW Coefficient Variation 16.5 % (11.7-14.2); Red Blood Cell Count 3.51 M/mm3 (4.30-5.90); White Blood Cell Count 6.25 K/mm3 (4.00-11.30)
[2019-01-13 06:00] LABS: Alanine Aminotransfer (ALT/SGP 38 U/L (12-78); Albumin, Blood 2.6 g/dL (3.4-5.0); Albumin/Globulin Ratio 0.6 (0.8-1.8); Alk Phos 60 U/L (50-136); Anion Gap 8 mmol/L (6-16); Aspartate Aminotrans (AST/SGOT 57 U/L (12-37); Bilirubin, Total 0.7 mg/dL (0.1-1.0); Blood Urea Nitrogen 7 mg/dL (8-24); Bun/Creatinine Ratio 11.7 (12.0-20.0); CO2, Blood 26 mmol/L (21-32); Calcium, Blood 8.4 mg/dL (8.5-10.1); Chloride, Blood 108 mmol/L (98-108); Globulin, Blood 4.2 g/dL (2.2-4.0); Glomerular Filtration Rate >60 (60-); Glucose, Blood 78 mg/dL (70-99); Potassium, Blood 4.4 mmol/L (3.5-5.5); Sodium, Blood 142 mmol/L (136-145); Total Protein, Blood 6.8 g/dL (6.4-8.2)
--- NOTE | 2019-01-13 06:32 | NUR ---
SHIFT SUMMARY: 58 Y/O MALE ADMITTED FOR TOXIC METABOLIC SYNDROME R/T MULTI-SUBSTANCE ABUSE. PATIENT WAS VERY AGGITATED AND RESTLESS AT START OF SHIFT, CONTINUED TO BE CONFUSED, ATTEMPTING TO GET OUT OF BED, GRABBING STAFF AND PUSHING STAFF. ATTEMPTED SEVERAL TIMES TO REDIRECT AND KEEP PATIENT FROM FALLING AND PULLING OUT HIS IV LINES. WITH POOR RESULTS, WAS FINALLY CALLED ORDERS NEEDED TO BE CLARFIED FOR MEDICATION USE. THERE WAS MEDICATIONS ORDERS FOR CIWA BUT NO ORDER TO MONITOR CIWA. CLARFICATION WAS COMPLETED. MONITORING CIWA WAS ORDERED WHICH PUT HIM AT 10 ON HIS LEVEL. GAVE HIM 2MG IV ATIVAN AND IT IMMEDIATLY TOOK AFFECT. AT FIRST IT DROPPED HIS BLOOD PRESSURE TO THE 80'S, AN HOUR LATER IT WAS BACK TO NORMAL. IV INFILITRATED, NEW ONE WAS STARTED. FLUIDS CONTINUED AT 75ML/HR. HE GOT UP OUT OF BED AGAIN PULLING AT NEW IV LINE, REDIRECTED FOR URINATION PURPOSES. IV REMAINED PATENT. BED ALARM REMAINED ON, AND SEIZURE PRECAUTIONS IN PLACE. WILL REPORT TO DAY SHIFT RN.
--- NOTE | 2019-01-13 18:36 | NUR ---
PT. SITTING IN BED AT THIS TIME. PT. HAS GOTTEN BETTER T/O THE DAY AND HAS BECOME CLEARER MENTALLY. COULD ONLY TELL HIS NAME AND DATE OF THIS MORNING AND WAS SAYING HE LIVED IN [place]. PT. UP IN SHOWER TODAY AND HIS GAIT HAS BECOME STEADIER. HE HAS EATEN WELL TODAY EVEN IN THE FACE OF NO DEENTURES. CHANGED HIS DIET TO MECH SOFT WITH GROUND MEAT. BLOOD PRESSURE HAS RUN LOW TODAY AND DR. LEYVA WAS NOTIFIED. PT. ASYMPTOMATIC.
--- NOTE | 2019-01-13 20:20 | NUR ---
PATIENT WAS SITTING UP IN THE [place], STILL SLIGHTLY CONFUSED ASKING WHERE HIS BELONGINGS WERE. STATES HE IS MISSING A HERNANDEZ THAT WAS ON A GREEN [place]KL[place]. ENCOURAGED HIM TO CHECK HIS POCKETS AND ROOM. ASKED HOW HE GOT IN HERE, INFORMED HIM I WAS NOT SURE HOW HE ARRIVED TO THE HOSPITAL. HE APPEARS TO KNOW WHERE HE IS AT BUT CONFUSED ABOUT DETAILS ON THE EVENTS THAT OCCURRED. HE IS STILL IMPULSIVE WHEN HE HAS TO URINATE, EXTRACTOR FILLER REPORTED THAT SHE FOUND HIM WALKING INTO ANOTHER ROOM AND WHEN HE REALIZED HE WAS NOT IN THE RIGHT PLACE HE TURNED AROUND FAST ALMOST FALLING FORWARD, SHE HAD TO CATCH HIM. WILL HAVE TO KEEP REMINDING HIM AND ORIENTING HIM THROUGHOUT THE NIGHT. HE LAYED BACK DOWN, BED ALARM IS ON.
--- NOTE | 2019-01-14 00:10 | NUR ---
PATIENT SLEEPING, NO SIGNS OF DISTRESS NOTED, BED ALARM IS ON, CALL LIGHT IN REACH.
--- NOTE | 2019-01-14 01:19 | NUR ---
PATIENT AWAKE, HAVING A SCATTERED COVERSTATION ABOUT GOING TO THE DENTIST, HIS MOMS HOUSE NEEDING A ROOF, TO NEWS, AND ABOUT SPACE SHIPS AND DRINKING POSIONS. HE WANTED TO GO THROUGH HIS BELONGINGS, GAVE HIM HIS BAG. AFTER A BIT HE LAID BACK DOWN, BED ALARM IS STILL ON.
--- NOTE | 2019-01-14 01:59 | NUR ---
ROSALINA HAS LAID BACK DOWN AND FALLEN BACK TO SLEEP. BED ALARM IS ON, CALL LIGHT IN REACH. WILL CONTINUE TO MONITOR AND REDIRECT.
[2019-01-14 05:01] LABS: BASOPHILS ABSOLUTE AUTO 0.04 K/mm3 (0.00-0.23); BASOPHILS PERCENT AUTO 1 % (0-2); EOSINOPHILS ABSOLUTE AUTO 0.04 K/mm3 (0.00-0.68); EOSINOPHILS PERCENT AUTO 1 % (0-6); Hemoglobin 12.5 g/dL (13.5-17.5); IMMATURE GRAN ABSOLUTE AUTO 0.01 K/mm3 (0.00-0.10); IMMATURE GRAN PERCENT AUTO 0 % (0-1); LYMPHOCYTES ABSOLUTE AUTO 2.25 K/mm3 (0.84-5.20); LYMPHOCYTES PERCENT AUTO 36 % (21-46); MONOCYTES ABSOLUTE AUTO 1.18 K/mm3 (0.16-1.47); MONOCYTES PERCENT AUTO 19 % (4-13); Mean Corpuscular HGB 35.8 pg (26.0-34.0); Mean Corpuscular HGB Conc 32.9 g/dL (31.5-36.5); Mean Platelet Volume 11.4 fL (9.1-12.4); NEUTROPHILS ABSOLUTE AUTO 2.69 K/mm3 (1.96-9.15); NEUTROPHILS PERCENT AUTO 43 % (41-73); Platelet Count 204 K/mm3 (150-400); RDW Coefficient Variation 17.1 % (11.7-14.2); RDW Standard Deviation 67.9 fL (35.1-46.3); Red Blood Cell Count 3.49 M/mm3 (4.30-5.90); White Blood Cell Count 6.21 K/mm3 (4.00-11.30)
[2019-01-14 05:05] LABS: Mean Corpuscular Volume 109 fL (80-100)
--- NOTE | 2019-01-14 05:16 | NUR ---
SHIFT SUMMARY: 58 Y/O MALE ADMITTED FOR TOXIC METABOLIC R/T MULTI SUBSTANCE ABUSE. HAS BEEN MORE CLEAR IN HIS MENTAL STATUS THEN PRIOR NIGHT. HE WAS ABLE TO HOLD CONVERSATION, UNDERSTAND CONVERSATION BACK AND FOLLOW DIRECTIONS. HE STILL IMPULSIVE WHEN GETTING UP TO URINATE AND WILL SET THE BED ALARM OFF BUT IS STABLE AT THE BED SIDE WITH URINAL. HE DID HAVE A STUMBLE EARLY IN SHIFT WHERE WIRE PHOTO OPERATOR CAUGHT HIM FROM FALLING. HE HAS BEEN COOPERATIVE AND PLEASANT ALL NIGHT WITH NO ACUTE CHANGES OR CONCERNS THIS SHIFT. WILL REPORT TO DAY SHIFT.
[2019-01-14 05:35] LABS: Alanine Aminotransfer (ALT/SGP 44 U/L (12-78); Albumin, Blood 2.8 g/dL (3.4-5.0); Albumin/Globulin Ratio 0.7 (0.8-1.8); Alk Phos 64 U/L (50-136); Anion Gap 4 mmol/L (6-16); Aspartate Aminotrans (AST/SGOT 62 U/L (12-37); Bilirubin, Total 0.8 mg/dL (0.1-1.0); Blood Urea Nitrogen 12 mg/dL (8-24); Bun/Creatinine Ratio 17.1 (12.0-20.0); CO2, Blood 30 mmol/L (21-32); Calcium, Blood 8.7 mg/dL (8.5-10.1); Chloride, Blood 106 mmol/L (98-108); Globulin, Blood 4.3 g/dL (2.2-4.0); Glomerular Filtration Rate >60 (60-); Glucose, Blood 92 mg/dL (70-99); Potassium, Blood 4.5 mmol/L (3.5-5.5); Sodium, Blood 140 mmol/L (136-145); Total Protein, Blood 7.1 g/dL (6.4-8.2)
[2019-01-14] MEDS ORDERED: ALBU90OI INH (10:44)
[2019-01-14] MEDS ORDERED: DIVA500EC PO (10:44)
[2019-01-14] MEDS ORDERED: LEVE500 PO (10:45)
[2019-01-14] MEDS ORDERED: ERYT1OIN BOTHEYES (10:45)
[2019-01-14] MEDS ORDERED: Nicoderm Cq1 EAC1 TOP (10:46)
[2019-01-14] MEDS ORDERED: LITH300C PO (10:46)
[2019-01-14] MEDS ORDERED: ONDA4ODT MM (10:46)
[2019-01-14] MEDS ORDERED: B-1100 M1 PO (10:47)
[2019-01-14] MEDS ORDERED: POTA10T PO (10:47)
--- NOTE | 2019-01-14 12:00 | NUR ---
PT. DISCHARGED HOME WITH HOME HEALTH. IV DC'D AND TAXI RIDE HOME. VERBALIZED UNDERSTANDING OF DISCHARGE ORDERS, MEDS TO MACHINE GUNNER AND DR. PATEL
--- NOTE | 2019-01-14 12:59 | NUR ---
Pt. in bed resting and ready to go home offered prayers , pt. is happy going home
== END 2019-01-14 11:59 | disposition home health service (06) | DRG 896 ==
LOC: ER 06:13 → PCU 08:43 → MEDS 08:43 → PCU 10:08 → UNDODEPER 01-09 08:51 → PCU 01-10 10:54 → MEDS 01-11 10:38 → ENPENDDIS 01-14 10:31 → MEDS 01-14 11:59
PROVIDERS: Emergency Medicine; Nurse Practitioner Acute Care; ADMIT Family Medicine
DX: F10.239 Alcohol dependence with withdrawal, unspecified (principal); G92 Toxic encephalopathy; G40.909 Epilepsy, unspecified, not intractable, without status epilepticus; F31.9 Bipolar disorder, unspecified; D69.6 Thrombocytopenia, unspecified; E87.6 Hypokalemia; B19.20 Unspecified viral hepatitis C without hepatic coma; H10.9 Unspecified conjunctivitis; Y90.0 Blood alcohol level of less than 20 mg/100 ml
CPT/HCPCS: 36415; 51701; 70450; 71045; 80053; 80164; 80178; 82140; 82550; 83735; 84443; 85025; 85610; 93005; 93010; 94760; 96361-59; 96365-59; 96367-59; 96375-59; 97110; 97162; 97165; 97530; 99285-25; G0480; J1650; J1953; J2060; J2310; J3411; J3475; J3480; J7030; J7042

== ENCOUNTER 2019-03-17 17:08 | Observation (INO) | payer MEDICARE ==
[~2019-03-17] VITALS: Ht 182.9 cm; Wt 63.5 kg
[~2019-03-17 17:08] MED LIST changes: +ALBU90OI INH; +B-1100 M1 PO; +ERYT1OIN BOTHEYES; +LEVE500 PO; +Nicoderm Cq1 EAC1 TOP; +POTA10T PO
[2019-03-17 19:33] LABS: Source, Urine Catheter
[2019-03-17 19:39] LABS: Appearance, Urine Clear (Clear); Bilirubin, Urine Neg (Neg); Blood, Urine Neg (Neg); Color, Urine Yellow (P-Yellow); Glucose Qualitative, Urine Neg (Neg); Ketones, Urine Neg (Neg); Leukocyte Esterase, Urine Neg (Neg); Nitrite, Urine Neg (Neg); Protein, Urine Neg (Neg); Specific Gravity, Urine 1.005 (1.003-1.022); Urobilinogen, Urine 1+ (Normal)
[2019-03-17 19:47] LABS: BASOPHILS ABSOLUTE AUTO 0.04 K/mm3 (0.00-0.23); BASOPHILS PERCENT AUTO 1 % (0-2); EOSINOPHILS ABSOLUTE AUTO 0.02 K/mm3 (0.00-0.68); EOSINOPHILS PERCENT AUTO 0 % (0-6); Hematocrit 37.1 % (37.0-53.0); Hemoglobin 12.4 g/dL (13.5-17.5); IMMATURE GRAN ABSOLUTE AUTO 0.01 K/mm3 (0.00-0.10); IMMATURE GRAN PERCENT AUTO 0 % (0-1); LYMPHOCYTES ABSOLUTE AUTO 3.56 K/mm3 (0.84-5.20); LYMPHOCYTES PERCENT AUTO 65 % (21-46); MONOCYTES ABSOLUTE AUTO 0.25 K/mm3 (0.16-1.47); MONOCYTES PERCENT AUTO 5 % (4-13); Mean Corpuscular HGB 35.2 pg (26.0-34.0); Mean Corpuscular HGB Conc 33.4 g/dL (31.5-36.5); Mean Corpuscular Volume 105 fL (80-100); NEUTROPHILS ABSOLUTE AUTO 1.59 K/mm3 (1.96-9.15); NEUTROPHILS PERCENT AUTO 29 % (41-73); Platelet Count 87 K/mm3 (150-400); RDW Coefficient Variation 15.4 % (11.7-14.2); RDW Standard Deviation 59.2 fL (35.1-46.3); Red Blood Cell Count 3.52 M/mm3 (4.30-5.90); White Blood Cell Count 5.47 K/mm3 (4.00-11.30)
[2019-03-17 19:50] LABS: U Amphetamine Screen Not Detected; U Barbituate Screen Not Detected; U Benzodiazapine Screen Not Detected; U Buprenorphine Screen Not Detected; U Cannabinoids Screen Not Detected; U Cocaine Screen Not Detected; U Methadone Screen Not Detected; U Methamphetamine Screen Not Detected; U Opiates Screen Not Detected; U Oxycodone Screen Not Detected; U Phencyclidine Screen Not Detected; U Propoxyphene Screen Not Detected
[2019-03-17 19:56] LABS: Alanine Aminotransfer (ALT/SGP 39 U/L (12-78); Albumin/Globulin Ratio 0.7 (0.8-1.8); Alk Phos 116 U/L (50-136); Anion Gap 2 mmol/L (6-16); Aspartate Aminotrans (AST/SGOT 71 U/L (12-37); Bilirubin, Total 0.4 mg/dL (0.1-1.0); Blood Urea Nitrogen 4 mg/dL (8-24); Bun/Creatinine Ratio 7.6 (12.0-20.0); CO2, Blood 29 mmol/L (21-32); Calcium, Blood 7.6 mg/dL (8.5-10.1); Chloride, Blood 116 mmol/L (98-108); Creatinine, Blood 0.53 mg/dL (0.60-1.20); Globulin, Blood 4.3 g/dL (2.2-4.0); Glomerular Filtration Rate >60 (60-); Glucose, Blood 99 mg/dL (70-99); Potassium, Blood 3.3 mmol/L (3.5-5.5); Sodium, Blood 147 mmol/L (136-145); Total Protein, Blood 7.3 g/dL (6.4-8.2)
[2019-03-17 19:58] LABS: Acetaminophen, Random <2.0 ug/mL (10.0-30.0)
[2019-03-17 20:09] LABS: Ethanol (Alcohol), Blood, Med 431 mg/dL
== END 2019-03-18 04:18 | disposition home or self-care (01) ==
LOC: ER 17:08 → EOR 17:09
PROVIDERS: ADMIT Emergency Medicine
DX: F10.129 Alcohol abuse with intoxication, unspecified (principal); F41.9 Anxiety disorder, unspecified; F31.9 Bipolar disorder, unspecified; F17.200 Nicotine dependence, unspecified, uncomplicated; Z88.0 Allergy status to penicillin; Z79.899 Other long term (current) drug therapy
CPT/HCPCS: 51701; 70450; 80053; 81003; 85025; 99285-25; G0378; G0480; J7030

== ENCOUNTER 2019-05-02 16:52 | Emergency (ER) | payer MEDICARE ==
[~2019-05-02] VITALS: Ht 185.4 cm; Wt 68.0 kg
[2019-05-03] MEDS ORDERED: FOLI1 PO (15:57)
[2019-05-03] MEDS ORDERED: Vitamin B-121000 MCG PO (15:57)
[2019-05-03] MEDS ORDERED: ONDA4ODT MM (15:57)
== END 2019-05-02 17:04 ==
LOC: ER 16:52
DX: M79.672 Pain in left foot (principal); F10.129 Alcohol abuse with intoxication, unspecified; Z88.0 Allergy status to penicillin; Z79.899 Other long term (current) drug therapy; F41.9 Anxiety disorder, unspecified; G40.909 Epilepsy, unspecified, not intractable, without status epilepticus; F31.9 Bipolar disorder, unspecified; F17.200 Nicotine dependence, unspecified, uncomplicated
CPT/HCPCS: 99283

== ENCOUNTER 2019-05-03 14:20 | Emergency (ER) | payer MEDICARE ==
[~2019-05-03] VITALS: Ht 185.4 cm; Wt 63.5 kg
[2019-05-03 15:19] LABS: BASOPHILS ABSOLUTE AUTO 0.02 K/mm3 (0.00-0.23); BASOPHILS PERCENT AUTO 0 % (0-2); EOSINOPHILS PERCENT AUTO 0 % (0-6); Hematocrit 40.6 % (37.0-53.0); Hemoglobin 13.7 g/dL (13.5-17.5); IMMATURE GRAN ABSOLUTE AUTO 0.02 K/mm3 (0.00-0.10); IMMATURE GRAN PERCENT AUTO 0 % (0-1); LYMPHOCYTES ABSOLUTE AUTO 1.65 K/mm3 (0.84-5.20); LYMPHOCYTES PERCENT AUTO 23 % (21-46); MONOCYTES ABSOLUTE AUTO 0.59 K/mm3 (0.16-1.47); MONOCYTES PERCENT AUTO 8 % (4-13); Mean Corpuscular HGB 34.6 pg (26.0-34.0); Mean Corpuscular HGB Conc 33.7 g/dL (31.5-36.5); Mean Corpuscular Volume 103 fL (80-100); Mean Platelet Volume 11.4 fL (9.1-12.4); NEUTROPHILS ABSOLUTE AUTO 5.03 K/mm3 (1.96-9.15); NEUTROPHILS PERCENT AUTO 69 % (41-73); Red Blood Cell Count 3.96 M/mm3 (4.30-5.90); White Blood Cell Count 7.31 K/mm3 (4.00-11.30)
[2019-05-03 15:22] LABS: Platelet Count 34 K/mm3 (150-400)
[2019-05-03 15:40] LABS: Alanine Aminotransfer (ALT/SGP 38 U/L (12-78); Albumin, Blood 3.7 g/dL (3.4-5.0); Albumin/Globulin Ratio 0.7 (0.8-1.8); Alk Phos 181 U/L (50-136); Anion Gap 6 mmol/L (6-16); Aspartate Aminotrans (AST/SGOT 78 U/L (12-37); Blood Urea Nitrogen 13 mg/dL (8-24); Bun/Creatinine Ratio 26.9 (12.0-20.0); CO2, Blood 29 mmol/L (21-32); Calcium, Blood 9.1 mg/dL (8.5-10.1); Chloride, Blood 99 mmol/L (98-108); Creatinine, Blood 0.48 mg/dL (0.60-1.20); Globulin, Blood 5.3 g/dL (2.2-4.0); Glomerular Filtration Rate >60 (60-); Glucose, Blood 126 mg/dL (70-99); Potassium, Blood 3.6 mmol/L (3.5-5.5); Sodium, Blood 134 mmol/L (136-145)
[2019-05-03] MEDS ORDERED: ONDA4ODT MM (15:57)
[2019-05-03] MEDS ORDERED: Vitamin B-121000 MCG PO (15:57)
[2019-05-03] MEDS ORDERED: FOLI1 PO (15:57)
== END 2019-05-03 16:23 | disposition home or self-care (01) ==
LOC: ER 14:20
PROVIDERS: Physician Assistant
DX: F41.9 Anxiety disorder, unspecified (principal); F31.9 Bipolar disorder, unspecified; G40.909 Epilepsy, unspecified, not intractable, without status epilepticus; F17.200 Nicotine dependence, unspecified, uncomplicated; Z88.0 Allergy status to penicillin; Z79.899 Other long term (current) drug therapy
CPT/HCPCS: 36415; 80053; 83690; 85025; 96361; 96374; 99285-25; J2405; J7030

== ENCOUNTER 2019-09-02 19:54 | Emergency (ER) | payer MEDICARE ==
[~2019-09-02] VITALS: Ht 165.1 cm; Wt 64.4 kg
[~2019-09-02 19:54] MED LIST changes: +FOLI1 PO; +Vitamin B-121000 MCG PO
== END 2019-09-03 00:15 | disposition home or self-care (01) ==
LOC: ER 19:54
DX: S09.90XA Unspecified injury of head, initial encounter (principal); F10.129 Alcohol abuse with intoxication, unspecified; Z88.0 Allergy status to penicillin; Z79.899 Other long term (current) drug therapy; F41.9 Anxiety disorder, unspecified; F31.9 Bipolar disorder, unspecified; Z86.19 Personal history of other infectious and parasitic diseases; I95.9 Hypotension, unspecified; F17.210 Nicotine dependence, cigarettes, uncomplicated; W19.XXXA Unspecified fall, initial encounter
CPT/HCPCS: 70450; 72125; 99283-25

== ENCOUNTER 2019-09-07 13:39 | Emergency (ER) | payer MEDICARE ==
[~2019-09-07] VITALS: Ht 182.9 cm; Wt 65.8 kg
[2019-09-07] MEDS ORDERED: MUPIROCIN1 GM TOP (18:02)
[2019-09-08] MEDS ORDERED: LITH300C PO (10:22)
[2019-09-08] MEDS ORDERED: DIVA500ER PO (10:22)
[2019-09-08] MEDS ORDERED: Depakote500 MG PO (10:29)
[2019-09-08] MEDS ORDERED: Lithium Carbon300 MG PO (10:29)
== END 2019-09-07 19:18 | disposition home or self-care (01) ==
LOC: ER 13:39
DX: S09.90XA Unspecified injury of head, initial encounter (principal); L01.00 Impetigo, unspecified; Z88.0 Allergy status to penicillin; Z79.899 Other long term (current) drug therapy; F41.9 Anxiety disorder, unspecified; F31.9 Bipolar disorder, unspecified; G40.909 Epilepsy, unspecified, not intractable, without status epilepticus; Z86.19 Personal history of other infectious and parasitic diseases; Z86.73 Personal history of transient ischemic attack (TIA), and cerebral infarction without residual deficits; F17.210 Nicotine dependence, cigarettes, uncomplicated; W18.30XA Fall on same level, unspecified, initial encounter
CPT/HCPCS: 70450; 99283-25

== ENCOUNTER 2019-09-08 09:35 | Emergency (ER) | payer MEDICARE ==
[~2019-09-08] VITALS: Ht 185.4 cm; Wt 65.8 kg
[~2019-09-08 09:35] MED LIST changes: +MUPIROCIN1 GM TOP
[2019-09-08] MEDS ORDERED: DIVA500ER PO (10:22)
[2019-09-08] MEDS ORDERED: LITH300C PO (10:22)
[2019-09-08] MEDS ORDERED: Lithium Carbon300 MG PO (10:29)
[2019-09-08] MEDS ORDERED: Depakote500 MG PO (10:29)
== END 2019-09-08 10:56 | disposition home or self-care (01) ==
LOC: ER 09:35
DX: F10.20 Alcohol dependence, uncomplicated (principal); F31.9 Bipolar disorder, unspecified; Z76.0 Encounter for issue of repeat prescription; Z71.41 Alcohol abuse counseling and surveillance of alcoholic; F41.9 Anxiety disorder, unspecified; G40.909 Epilepsy, unspecified, not intractable, without status epilepticus; Z86.19 Personal history of other infectious and parasitic diseases; Z88.0 Allergy status to penicillin; Z79.899 Other long term (current) drug therapy; F17.210 Nicotine dependence, cigarettes, uncomplicated
CPT/HCPCS: 99282